=== PATIENT | male | born 1965 | race African-American/Black ===

== ENCOUNTER 2017-03-27 21:47 | Emergency (ER) | payer BC, MEDICAID ==
[~2017-03-27] VITALS: Ht 170.2 cm; Wt 64.0 kg
[2017-03-27] MEDS ORDERED: SODIUM CHLORIDE 0.9% 1,000 ML IV ONE (23:13)
[2017-03-27] MEDS ORDERED: MORPHINE SULFATE 4 MG/ML CPJ (NOT FOR IM USE) IV STA (23:13)
[2017-03-27] MEDS ORDERED: ONDANSETRON HCL 4MG/2ML VIAL IV STA (23:13)
[2017-03-27] MEDS ORDERED: NITROGLYCERIN OINT 1GM/INCH UDPKT TD ONE (23:15)
[2017-03-27] MEDS ORDERED: ASPIRIN 81MG TABLET PO ONE (23:15)
[2017-03-27 23:45] LABS: HEMATOCRIT. 38.9 % (42.0-52.0); HEMOGLOBIN. 13.3 g/dL (14.0-18.0); MEAN CORPUSCULAR HEMOGLOBIN 35.9 pg (28.0-32.0); MEAN CORPUSCULAR VOLUME 104.8 fL (80.0-94.0); MEAN PLATELET VOLUME 7.7 fl (7.4-10.4); PLATELET 218 x1000/uL (130-400); RED BLOOD CELL COUNT 3.72 mill/uL (4.7-6.1); RED CELL DISTRIBUTION WIDTH 12.7 % (11.6-14.6)
[2017-03-27 23:48] LABS: INR 1.1; PROTHROMBIN TIME 11.2 sec (9.4-11.6)
[2017-03-27 23:55] LABS: CARBON DIOXIDE 23 mEq/L (21-32); CHLORIDE 107 mEq/L (98-107); ETHANOL BLOOD 277 mg/dL; TROPONIN I < 0.02 ng/mL (0.00-0.04)
[2017-03-28] MEDS: MORPHINE SULFATE 2 MG/ML CPJ (NOT FOR IM USE) IV NR ×3 (00:01→01:41)
[2017-03-28 01:02] LABS: PLATELET ESTIMATE NORMAL
[2017-03-28 01:33] LABS: *AMPHETAMINES SCREEN URINE NEGATIVE (NEGATIVE); *BARBITURATES SCREEN URINE NEGATIVE (NEGATIVE); *BENZODIAZEPINES SCREEN URINE NEGATIVE (NEGATIVE); *COCAINE SCREEN URINE NEGATIVE (NEGATIVE); CANNABINOID URINE SCREEN PRESUMTIVE POSITIVE (NEGATIVE); METHADONE URINE SCREEN NEGATIVE (NEGATIVE); OPIATES URINE SCREEN PRESUMTIVE POSITIVE (NEGATIVE); PHENCYCLIDINE URINE SCREEN NEGATIVE (NEGATIVE)
[2017-03-28 01:41] VITALS: BP 112/76
== END 2017-03-28 01:41 | disposition home or self-care (01) ==
LOC: ER 22:33
DX: T51.0X1A Toxic effect of ethanol, accidental (unintentional), initial encounter (principal); I10 Essential (primary) hypertension; E78.00 Pure hypercholesterolemia, unspecified; R07.9 Chest pain, unspecified; F12.10 Cannabis abuse, uncomplicated; F17.200 Nicotine dependence, unspecified, uncomplicated; Y92.89 Other specified places as the place of occurrence of the external cause
CPT/HCPCS: 36415; 71010; 80053; 80305; 83690; 83880; 84484; 85025; 85610; 93005; 96361; 96374; 96375; 99285; 99406; G0482; J2270; J2405; J7030; Z7610

== ENCOUNTER 2017-12-10 11:12 | Emergency (ER) | payer BC, MEDICAID ==
[~2017-12-10] VITALS: Ht 170.2 cm; Wt 66.0 kg
[2017-12-10] MEDS ORDERED: IBUPROFEN 800MG TABLET PO ONE (11:45)
[2017-12-10 12:50] VITALS: BP 138/87
== END 2017-12-10 12:53 | disposition home or self-care (01) ==
LOC: ER 11:19
DX: M25.532 Pain in left wrist (principal); E78.00 Pure hypercholesterolemia, unspecified; I10 Essential (primary) hypertension; F12.10 Cannabis abuse, uncomplicated; F17.200 Nicotine dependence, unspecified, uncomplicated
CPT/HCPCS: 29125; 73110; 99284

== ENCOUNTER 2019-10-15 11:53 | Emergency (ER) | payer SELFPAY ==
[~2019-10-15] VITALS: Ht 170.2 cm; Wt 70.0 kg
[2019-10-15] MEDS ORDERED: SODIUM CHLORIDE 0.9% 1,000 ML IV ONE (12:16)
[2019-10-15 12:55] LABS: CHLORIDE 106 mEq/L (98-107)
[2019-10-15 12:59] LABS: ETHANOL BLOOD 53 mg/dL; HEMATOCRIT. 38.8 % (42.0-52.0); HEMOGLOBIN. 13.3 g/dL (14.0-18.0); MEAN CORPUSCULAR HEMOGLOBIN 36.2 pg (28.0-32.0); MEAN CORPUSCULAR VOLUME 105.4 fL (80.0-94.0); MEAN PLATELET VOLUME 7.5 fl (7.4-10.4); PLATELET 207 x1000/uL (130-400); RED BLOOD CELL COUNT 3.68 mill/uL (4.7-6.1); RED CELL DISTRIBUTION WIDTH 13.3 % (11.6-14.6)
[2019-10-15 13:00] LABS: INR 1.1; PROTHROMBIN TIME 11.4 sec (9.6-11.0)
[2019-10-15 14:12] LABS: PLATELET ESTIMATE NORMAL
[2019-10-15 14:48] LABS: CLARITY URINE CLEAR (CLEAR); COLOR URINE YELLOW (YELLOW); KETONES URINE NEGATIVE (NEGATIVE); LEUKOCYTE ESTERASE URINE NEGATIVE (NEGATIVE); NITRITE URINE NEGATIVE (NEGATIVE); OCCULT BLOOD URINE NEGATIVE (NEGATIVE); PROTEIN URINE NEGATIVE (NEGATIVE); SPECIFIC GRAVITY URINE 1.009 (1.005-1.030); UROBILINOGEN URINE 0.2 E.U./dL (0.2-1.0)
[2019-10-15 15:05] LABS: METHADONE URINE SCREEN NEGATIVE (NEGATIVE); OPIATES URINE SCREEN NEGATIVE (NEGATIVE); PHENCYCLIDINE URINE SCREEN NEGATIVE (NEGATIVE)
[2019-10-15 15:06] LABS: *AMPHETAMINES SCREEN URINE NEGATIVE (NEGATIVE); *BARBITURATES SCREEN URINE NEGATIVE (NEGATIVE); *BENZODIAZEPINES SCREEN URINE NEGATIVE (NEGATIVE); *COCAINE SCREEN URINE NEGATIVE (NEGATIVE); CANNABINOID URINE SCREEN PRESUMTIVE POSITIVE (NEGATIVE)
[2019-10-15 16:08] VITALS: BP 162/97
== END 2019-10-15 16:20 | disposition home or self-care (01) ==
LOC: ER 12:04 → CANBEDREQ 19:24
DX: R55 Syncope and collapse (principal); F12.90 Cannabis use, unspecified, uncomplicated; R94.31 Abnormal electrocardiogram [ECG] [EKG]; I10 Essential (primary) hypertension; E78.00 Pure hypercholesterolemia, unspecified
CPT/HCPCS: 36415; 71045; 80053; 80305; 80320; 81003; 85025; 85610; 93005; 96360; 99285; J7030; G0480

== ENCOUNTER 2020-05-11 15:55 | Emergency (ER) | payer SELFPAY ==
[~2020-05-11] VITALS: Ht 172.7 cm; Wt 64.0 kg
[2020-05-11] MEDS ORDERED: HYDROCODONE/ACETAMINOPHEN 5/325MG TABLET PO ONE (17:30)
[2020-05-11] MEDS ORDERED: IBUPROFEN 600MG TABLET PO ONE (17:30)
[2020-05-11 17:43] VITALS: BP 148/79
== END 2020-05-11 20:45 | disposition home or self-care (01) ==
LOC: ER 15:55
DX: S82.61XA Displaced fracture of lateral malleolus of right fibula, initial encounter for closed fracture (principal); Y93.67 Activity, basketball; Y92.310 Basketball court as the place of occurrence of the external cause; I10 Essential (primary) hypertension; F12.90 Cannabis use, unspecified, uncomplicated
CPT/HCPCS: 29515; 73610; 99283

== ENCOUNTER 2021-02-26 14:10 | Inpatient (IN) | payer SELFPAY ==
[~2021-02-26] VITALS: Ht 172.7 cm; Wt 64.0 kg
[2021-02-26] MEDS ORDERED: SODIUM CHLORIDE 0.9% 1,000 ML IV ONE (14:45)
[2021-02-26 15:17] LABS: BASOPHILS % 1.1 % (0.0-2.0); EOSINOPHILS % 1.6 % (0.0-5.0); HEMATOCRIT. 33.2 % (42.0-52.0); HEMOGLOBIN. 11.3 g/dL (14.0-18.0); LYMPHOCYTES % 30.7 % (20.0-50.0); MEAN CORPUSCULAR HEMOGLOBIN 35.4 pg (28.0-32.0); MONOCYTES % 13.9 % (2.0-8.0); NEUTROPHILS % 52.7 % (40.0-76.0); PLATELET 208 x1000/uL (130-400); RED BLOOD CELL COUNT 3.19 mill/uL (4.7-6.1); RED CELL DISTRIBUTION WIDTH 14.4 % (11.6-14.6)
[2021-02-26 16:00] LABS: CHLORIDE 109 mEq/L (98-107)
[2021-02-26 16:09] LABS: ETHANOL BLOOD 123 mg/dL
[2021-02-26 16:28] LABS: CLARITY URINE CLEAR (CLEAR); COLOR URINE YELLOW (YELLOW); KETONES URINE TRACE (NEGATIVE); LEUKOCYTE ESTERASE URINE TRACE (NEGATIVE); NITRITE URINE NEGATIVE (NEGATIVE); OCCULT BLOOD URINE NEGATIVE (NEGATIVE); PH URINE 5.5 (4.5-8.0); PROTEIN URINE 1+ (NEGATIVE); SPECIFIC GRAVITY URINE 1.018 (1.005-1.030)
[2021-02-26 16:39] LABS: *AMPHETAMINES SCREEN URINE NEGATIVE (NEGATIVE); *BARBITURATES SCREEN URINE NEGATIVE (NEGATIVE); *BENZODIAZEPINES SCREEN URINE PRESUMTIVE POSITIVE (NEGATIVE); *COCAINE SCREEN URINE NEGATIVE (NEGATIVE); METHADONE URINE SCREEN NEGATIVE (NEGATIVE); OPIATES URINE SCREEN NEGATIVE (NEGATIVE); PHENCYCLIDINE URINE SCREEN NEGATIVE (NEGATIVE)
[2021-02-26 16:40] LABS: CANNABINOID URINE SCREEN PRESUMTIVE POSITIVE (NEGATIVE)
[2021-02-26] MEDS ORDERED: ALBUTEROL (0.083%) 2.5MG/3ML NEB HHN STA (16:45)
[2021-02-27] MEDS ORDERED: ACETAMINOPHEN 500MG TABLET PO PRN (02:15)
[2021-02-27] MEDS ORDERED: WARF2.5T83 PO (03:09)
[2021-02-27] MEDS ORDERED: LISI-186 MT (03:11)
[2021-02-27] MEDS ORDERED: COR6 PO (03:12)
[2021-02-27] MEDS ORDERED: CLOP-31 PO (03:13)
[2021-02-27] MEDS ORDERED: PANT40TA51 MT (03:14)
[2021-02-27] MEDS ORDERED: ATOR-2 PO (03:14)
[2021-02-27] MEDS ORDERED: FOLI-43 MT (03:15)
[2021-02-27] MEDS ORDERED: ACET650T37 PO (03:16)
[2021-02-27 04:00] VITALS: BP 165/102
[2021-02-27 04:13] VITALS: BP 149/97
[2021-02-27] MEDS ORDERED: *PATIENT'S OWN MEDICATION STORAGE XX SCH (04:15)
[2021-02-27] MEDS: CARVEDILOL 6.25 MG TABLET PO SCH ×2 (05:43→21:13)
[2021-02-27] MEDS: PANTOPRAZOLE 40MG DR TABLET PO SCH (05:43)
[2021-02-27] MEDS: LISINOPRIL 20MG TABLET PO SCH (05:44)
[2021-02-27 06:36] LABS: HEMATOCRIT. 37.3 % (42.0-52.0); HEMOGLOBIN. 12.7 g/dL (14.0-18.0); MEAN CORPUSCULAR HEMOGLOBIN 35.4 pg (28.0-32.0); MEAN PLATELET VOLUME 8.3 fl (7.4-10.4); PLATELET 183 x1000/uL (130-400); RED BLOOD CELL COUNT 3.59 mill/uL (4.7-6.1)
[2021-02-27 06:57] LABS: CHLORIDE 108 mEq/L (98-107)
[2021-02-27 06:58] LABS: INR 1.1; PROTHROMBIN TIME 11.9 sec (9.6-11.0)
[2021-02-27 08:00] VITALS: BP 141/102
[2021-02-27] MEDS: CLOPIDOGREL 75MG TABLET PO SCH (08:44)
[2021-02-27] MEDS: LEVETIRACETAM 500MG TABLET PO SCH ×2 (08:44→21:13)
[2021-02-27] MEDS: FOLIC ACID 1MG TABLET PO SCH (08:44)
[2021-02-27] MEDS: CLONIDINE 0.1MG TABLET PO PRN ×2 (08:44→15:35)
[2021-02-27] MEDS ORDERED: LISINOPRIL 20MG TABLET PO SCH (09:00)
[2021-02-27 12:00] VITALS: BP 138/90
[2021-02-27] MEDS ORDERED: LORAZEPAM 2MG/ML CPJ IV PRN (13:45)
[2021-02-27] MEDS: CHLORDIAZEPOXIDE 5 MG CAPSULE PO SCH ×2 (14:01→21:48)
[2021-02-27 14:26] LABS: PLATELET ESTIMATE NORMAL
[2021-02-27] MEDS ORDERED: FOLIC ACID 1 MG, THIAMINE HCL 100 MG, MVI, ADULT NO.1 10 ML in DEXTROSE 5% WATER 1,000 ML IV SCH (15:00)
[2021-02-27 16:00] VITALS: BP 134/103
[2021-02-27 20:00] VITALS: BP_SYST 118; BP_SYST 130; BP_DIAS 72; BP_DIAS 84
[2021-02-27] MEDS ORDERED: ATORVASTATIN CALCIUM 40MG TABLET PO SCH (21:00)
[2021-02-28] VITALS: BP 139/96
[2021-02-28 04:00] VITALS: BP 132/89
[2021-02-28] MEDS: CHLORDIAZEPOXIDE 5 MG CAPSULE PO SCH ×2 (06:12→13:10)
[2021-02-28] MEDS: PANTOPRAZOLE 40MG DR TABLET PO SCH (06:12)
[2021-02-28 08:00] VITALS: BP 137/90
[2021-02-28] MEDS: LEVETIRACETAM 500MG TABLET PO SCH (09:07)
[2021-02-28] MEDS: CLOPIDOGREL 75MG TABLET PO SCH (09:07)
[2021-02-28] MEDS: FOLIC ACID 1MG TABLET PO SCH (09:07)
[2021-02-28] MEDS: LISINOPRIL 20MG TABLET PO SCH (09:07)
[2021-02-28] MEDS: CARVEDILOL 6.25 MG TABLET PO SCH (09:08)
[2021-02-28 12:00] VITALS: BP 125/79
[2021-02-28] MEDS ORDERED: CHLO25CA10 PO (15:19)
[2021-02-28] MEDS ORDERED: THIA100T88 MT (15:24)
[2021-02-28 15:43] VITALS: BP 125/79
[2021-02-28 16:00] VITALS: BP 124/79
== END 2021-02-28 17:30 | disposition home or self-care (01) | DRG 775 ==
LOC: ER 14:16 → 7EST 21:11 → ENRESERV 21:58
PROVIDERS: ADMIT Internal Medicine; ATTEND Internal Medicine
PROC: 4A10X4Z Monitoring of Central Nervous Electrical Activity, External Approach (ICD-10-PCS; principal; 2021-02-28)
DX: F10.139 Alcohol abuse with withdrawal, unspecified (principal); E44.0 Moderate protein-calorie malnutrition; R56.9 Unspecified convulsions; E87.8 Other disorders of electrolyte and fluid balance, not elsewhere classified; E78.00 Pure hypercholesterolemia, unspecified; E78.5 Hyperlipidemia, unspecified; I10 Essential (primary) hypertension; I25.10 Atherosclerotic heart disease of native coronary artery without angina pectoris; Y90.6 Blood alcohol level of 120-199 mg/100 ml; D64.9 Anemia, unspecified; D72.819 Decreased white blood cell count, unspecified; F12.90 Cannabis use, unspecified, uncomplicated; Z68.21 Body mass index [BMI] 21.0-21.9, adult; Z82.49 Family history of ischemic heart disease and other diseases of the circulatory system; Z83.3 Family history of diabetes mellitus; Z20.822 Contact with and (suspected) exposure to COVID-19
CPT/HCPCS: 36415; 70551; 71045; 80048; 80053; 80305; 80320; 81003; 84484; 85025; 87426; 93005; 93971; 99285; J3411; J3490; J7030; J7070; G0480

== ENCOUNTER 2021-04-03 17:53 | Emergency (ER) | payer MEDICAID ==
[~2021-04-03] VITALS: Ht 172.7 cm; Wt 63.0 kg
[~2021-04-03 17:53] MED LIST: ACET650T37 PO; ASPI-1497 PO; ATOR-2 PO; CLOP-31 PO; COR6 PO; FOLI-43 MT; LISI-186 MT
[2021-04-03 17:55] VITALS: BP 168/95
== END 2021-04-03 21:13 | disposition left against medical advice (07) ==
LOC: ER 17:53
DX: Z53.21 Procedure and treatment not carried out due to patient leaving prior to being seen by health care provider (principal); I49.9 Cardiac arrhythmia, unspecified
CPT/HCPCS: 93005

== ENCOUNTER 2022-06-20 12:49 | Emergency (ER) | payer MEDICAID ==
[~2022-06-20] VITALS: Ht 172.7 cm; Wt 75.0 kg
[~2022-06-20 12:49] MED LIST changes: +ACET-3163 PO; -ACET650T37 PO; +APIX5TAB PO; +nitro
[2022-06-20 12:51] VITALS: BP 172/98
[2022-06-20 14:17] LABS: CLARITY URINE CLEAR (CLEAR); COLOR URINE YELLOW (YELLOW); KETONES URINE TRACE (NEGATIVE); LEUKOCYTE ESTERASE URINE NEGATIVE (NEGATIVE); NITRITE URINE NEGATIVE (NEGATIVE); OCCULT BLOOD URINE TRACE (NEGATIVE); PROTEIN URINE 3+ (NEGATIVE); SPECIFIC GRAVITY URINE 1.023 (1.005-1.030)
[2022-06-20 14:23] LABS: EOSINOPHILS % 0.6 % (0.0-5.0); HEMOGLOBIN. 13.6 g/dL (14.0-18.0); LYMPHOCYTES % 30.3 % (20.0-50.0); MEAN CORPUSCULAR VOLUME 105.9 fL (80.0-94.0); MEAN PLATELET VOLUME 8.2 fl (7.4-10.4); MONOCYTES % 11.1 % (2.0-8.0); PLATELET 143 x1000/uL (130-400); RED BLOOD CELL COUNT 3.78 mill/uL (4.7-6.1); RED CELL DISTRIBUTION WIDTH 12.8 % (11.6-14.6)
[2022-06-20 14:37] LABS: CHLORIDE 102 mEq/L (98-107)
[2022-06-20 14:51] LABS: ETHANOL BLOOD 186 mg/dL
[2022-06-20 15:00] LABS: *AMPHETAMINES SCREEN URINE NEGATIVE (NEGATIVE); *BARBITURATES SCREEN URINE NEGATIVE (NEGATIVE); *BENZODIAZEPINES SCREEN URINE NEGATIVE (NEGATIVE); *COCAINE SCREEN URINE NEGATIVE (NEGATIVE); CANNABINOID URINE SCREEN PRESUMTIVE POSITIVE (NEGATIVE); METHADONE URINE SCREEN NEGATIVE (NEGATIVE); OPIATES URINE SCREEN NEGATIVE (NEGATIVE); PHENCYCLIDINE URINE SCREEN NEGATIVE (NEGATIVE)
[2022-06-20] MEDS ORDERED: MECL-264 PO (15:40)
== END 2022-06-20 15:55 | disposition home or self-care (01) ==
LOC: ER 12:49
DX: F10.129 Alcohol abuse with intoxication, unspecified (principal); Y90.6 Blood alcohol level of 120-199 mg/100 ml; F12.929 Cannabis use, unspecified with intoxication, unspecified; R42 Dizziness and giddiness; G89.29 Other chronic pain; E78.00 Pure hypercholesterolemia, unspecified; I10 Essential (primary) hypertension; Z79.899 Other long term (current) drug therapy
CPT/HCPCS: 36415; 80053; 80305; 80320; 81003; 84484; 85025; 93005; 99285; G0480

== ENCOUNTER 2022-09-20 17:01 | Emergency (ER) | payer MEDICAID ==
[~2022-09-20] VITALS: Ht 170.2 cm; Wt 65.0 kg
[~2022-09-20 17:01] MED LIST changes: +MECL-264 PO
[2022-09-20] MEDS ORDERED: SODIUM CHLORIDE 0.9% 1,000 ML IV ONE (17:30)
[2022-09-20] MEDS ORDERED: FOLIC ACID 1 MG, THIAMINE HCL 100 MG, MVI, ADULT NO.1 10 ML in DEXTROSE 5% WATER 1,000 ML IV ONE ×4 (17:30)
[2022-09-20] MEDS ORDERED: LORAZEPAM 2MG/ML CPJ IV ONE (17:30)
[2022-09-20 18:00] LABS: EOSINOPHILS % 0.5 % (0.0-5.0); HEMATOCRIT. 38.4 % (42.0-52.0); LYMPHOCYTES % 14.4 % (20.0-50.0); MEAN CORPUSCULAR HEMOGLOBIN 34.8 pg (28.0-32.0); MEAN CORPUSCULAR VOLUME 102.6 fL (80.0-94.0); MEAN PLATELET VOLUME 8.4 fl (7.4-10.4); MONOCYTES % 12.5 % (2.0-8.0); NEUTROPHILS % 71.6 % (40.0-76.0); PLATELET 166 x1000/uL (130-400); RED BLOOD CELL COUNT 3.74 mill/uL (4.7-6.1); RED CELL DISTRIBUTION WIDTH 14.5 % (11.6-14.6)
[2022-09-20 18:03] LABS: CHLORIDE 103 mEq/L (98-107)
[2022-09-20 18:04] LABS: INR 1.1
[2022-09-20 18:06] VITALS: BP 187/115
[2022-09-20 18:12] LABS: ETHANOL BLOOD 44 mg/dL; PHOSPHORUS 3.2 mg/dL (2.5-4.9)
[2022-09-20] MEDS ORDERED: MAGNESIUM 2 G PREMIX 50 ML IV ONE (18:30)
[2022-09-20] MEDS ORDERED: CHLORDIAZEPOXIDE 25MG CAPSULE PO ONE (18:30)
[2022-09-20] MEDS ORDERED: L25 MT (18:58)
[2022-09-20] MEDS ORDERED: HYDRALAZINE 20MG/ML VIAL IV ONE (19:00)
== END 2022-09-20 20:38 | disposition home or self-care (01) ==
LOC: ER 17:23
DX: F10.239 Alcohol dependence with withdrawal, unspecified (principal); E83.42 Hypomagnesemia; Y90.2 Blood alcohol level of 40-59 mg/100 ml
CPT/HCPCS: 36415; 71045; 80053; 80320; 83690; 83735; 84100; 84484; 85025; 85610; 93005; 96365; 96367; 96375; 99291; J0360; J2060; J3411; J3475; J3490; J7030; J7070; Z7610; G0480

== ENCOUNTER 2022-11-01 20:08 | Emergency (ER) | payer MEDICAID ==
[~2022-11-01] VITALS: Ht 167.6 cm; Wt 73.0 kg
[~2022-11-01 20:08] MED LIST changes: +L25 MT
[2022-11-01] MEDS ORDERED: NITROGLYCERIN 0.4MG TABLET SL SL PRN (20:30)
[2022-11-01] MEDS ORDERED: ASPIRIN 81MG TABLET PO ONE (20:30)
[2022-11-01 21:53] LABS: HEMATOCRIT. 34.8 % (42.0-52.0); HEMOGLOBIN. 11.8 g/dL (14.0-18.0); MEAN CORPUSCULAR HEMOGLOBIN 34.8 pg (28.0-32.0); MEAN CORPUSCULAR VOLUME 102.5 fL (80.0-94.0); MEAN PLATELET VOLUME 7.8 fl (7.4-10.4); PLATELET 182 x1000/uL (130-400); RED BLOOD CELL COUNT 3.39 mill/uL (4.7-6.1)
[2022-11-01 22:14] LABS: CHLORIDE 105 mEq/L (98-107); PLATELET ESTIMATE NORMAL
[2022-11-01 23:09] VITALS: BP 132/98
== END 2022-11-01 23:14 | disposition home or self-care (01) ==
LOC: ER 20:08 → CANBEDREQ 23:47
DX: R07.89 Other chest pain (principal); E78.00 Pure hypercholesterolemia, unspecified; I10 Essential (primary) hypertension; F12.10 Cannabis abuse, uncomplicated
CPT/HCPCS: 36415; 71045; 80053; 83880; 84484; 85025; 93005; 99285

== ENCOUNTER 2022-11-30 15:16 | Inpatient (IN) | payer MEDICAID ==
[~2022-11-30] VITALS: Ht 172.7 cm; Wt 69.1 kg
[~2022-11-30 15:16] MED LIST changes: -ACET-3163 PO; -CLOP-31 PO; -L25 MT; +NITR0.4T49 SL; +PANT40TA51 PO; +THIA100T72 PO; -nitro
[2022-11-30] MEDS ORDERED: NITROGLYCERIN 0.4MG TABLET SL SL PRN (16:30)
[2022-11-30] MEDS ORDERED: ASPIRIN 81MG TABLET PO ONE (16:30)
[2022-11-30] MEDS ORDERED: SODIUM CHLORIDE 0.9% 1,000 ML IV ONE (16:30)
[2022-11-30 17:11] LABS: HEMATOCRIT. 28.3 % (42.0-52.0); HEMOGLOBIN. 9.7 g/dL (14.0-18.0); MEAN CORPUSCULAR HEMOGLOBIN 36.2 pg (28.0-32.0); MEAN CORPUSCULAR VOLUME 106.1 fL (80.0-94.0); MEAN PLATELET VOLUME 8.1 fl (7.4-10.4); PLATELET 166 x1000/uL (130-400); RED BLOOD CELL COUNT 2.67 mill/uL (4.7-6.1); RED CELL DISTRIBUTION WIDTH 14.1 % (11.6-14.6)
[2022-11-30 17:22] LABS: CHLORIDE 112 mEq/L (98-107)
[2022-11-30 17:29] LABS: D-DIMER 0.81 mg/L FEU (<0.50); PARTIAL THROMBOPLASTIN TIME 23.5 sec (23.4-31.0); PROTHROMBIN TIME 10.9 sec (9.6-11.0)
[2022-11-30 17:54] LABS: PLATELET ESTIMATE NORMAL
[2022-11-30] MEDS ORDERED: IOHEXOL-350 100 ML BOTTLE ONE (18:43)
[2022-11-30] MEDS: SODIUM CHLORIDE 0.9% INJ 3ML FLUSH IVF SCH (22:00)
[2022-11-30] MEDS ORDERED: CLONIDINE 0.1MG TABLET PO PRN (22:00)
[2022-11-30] MEDS ORDERED: MAGNESIUM/ALUMINUM HYDROXIDE/SIMETHICONE 30ML UDC PO PRN (22:00)
[2022-11-30] MEDS ORDERED: ACETAMINOPHEN 325MG TABLET PO PRN ×2 (22:00)
[2022-11-30] MEDS ORDERED: ONDANSETRON HCL 4MG/2ML INJ IV PRN (22:00)
[2022-11-30] MEDS ORDERED: ZOLPIDEM TARTRATE 5MG TABLET PO PRN (22:00)
[2022-11-30] MEDS ORDERED: DIPHENHYDRAMINE 50MG/ML VIAL IV PRN (22:00)
[2022-11-30 22:45] VITALS: BP 155/83; PULSE 77; RESP 18; TEMP 98.8
[2022-11-30] MEDS: CHLORDIAZEPOXIDE 25MG CAPSULE PO SCH (23:14)
[2022-12-01] MEDS: SODIUM CHLORIDE 0.9% INJ 3ML FLUSH IVF SCH ×3 (06:00→20:54)
[2022-12-01] MEDS: CHLORDIAZEPOXIDE 25MG CAPSULE PO SCH (07:02)
[2022-12-01 07:39] LABS: *AMPHETAMINES SCREEN URINE NEGATIVE (NEGATIVE); *BARBITURATES SCREEN URINE NEGATIVE (NEGATIVE); *BENZODIAZEPINES SCREEN URINE PRESUMTIVE POSITIVE (NEGATIVE); *COCAINE SCREEN URINE NEGATIVE (NEGATIVE); CANNABINOID URINE SCREEN NEGATIVE (NEGATIVE); METHADONE URINE SCREEN NEGATIVE (NEGATIVE); OPIATES URINE SCREEN NEGATIVE (NEGATIVE); PHENCYCLIDINE URINE SCREEN NEGATIVE (NEGATIVE)
[2022-12-01 08:00] VITALS: BP 142/84; PULSE 71; RESP 18; TEMP 98.8
[2022-12-01] MEDS: APIXABAN 5 MG TABLET PO SCH ×2 (08:50→16:50)
[2022-12-01] MEDS: SPIRONOLACTONE 25MG TABLET PO SCH (08:50)
[2022-12-01] MEDS: THIAMINE HCL 100MG TABLET PO SCH (08:50)
[2022-12-01] MEDS: LISINOPRIL 5MG TABLET PO SCH ×2 (08:51→20:53)
[2022-12-01] MEDS ORDERED: CARVEDILOL 3.125 MG TABLET PO SCH (09:00)
[2022-12-01] MEDS ORDERED: LISINOPRIL 5MG TABLET PO SCH (09:00)
[2022-12-01 12:00] VITALS: BP 132/69; PULSE 68; RESP 20; TEMP 97.4
[2022-12-01 16:00] VITALS: BP_SYST 122; BP_SYST 164; BP_DIAS 100; BP_DIAS 63; PULSE 75; PULSE 81; RESP 20; TEMP 97; TEMP 99.7
[2022-12-01 20:00] VITALS: BP 144/80; PULSE 69; RESP 18; TEMP 97.8
[2022-12-01] MEDS: CARVEDILOL 12.5MG TABLET PO SCH (20:53)
[2022-12-01] MEDS: FAMOTIDINE 20MG TABLET PO SCH (20:53)
[2022-12-02] VITALS: BP 115/60; PULSE 90; RESP 20; TEMP 98.8
[2022-12-02 04:00] VITALS: BP 134/77; PULSE 65; RESP 20; TEMP 98.4
[2022-12-02] MEDS: SODIUM CHLORIDE 0.9% INJ 3ML FLUSH IVF SCH ×2 (06:00→14:24)
[2022-12-02 08:00] VITALS: BP 144/94; PULSE 63; RESP 20; TEMP 97.3
[2022-12-02] MEDS: SPIRONOLACTONE 25MG TABLET PO SCH (08:43)
[2022-12-02] MEDS: APIXABAN 5 MG TABLET PO SCH (08:43)
[2022-12-02] MEDS: THIAMINE HCL 100MG TABLET PO SCH (08:44)
[2022-12-02] MEDS: LISINOPRIL 5MG TABLET PO SCH (08:44)
[2022-12-02] MEDS: FAMOTIDINE 20MG TABLET PO SCH (08:44)
[2022-12-02] MEDS: CARVEDILOL 12.5MG TABLET PO SCH (08:44)
[2022-12-02 12:00] VITALS: BP 135/85; PULSE 65; RESP 18; TEMP 99.7
[2022-12-02 15:17] VITALS: BP 135/85; PULSE 65; TEMP 99.7; O2SAT 97
[2022-12-02 16:00] VITALS: BP 138/90; PULSE 65; RESP 20; TEMP 98.2
== END 2022-12-02 16:20 | disposition home or self-care (01) | DRG 48 ==
LOC: ER 15:16 → 8WST 20:41 → EDBEDREQTM 20:45 → EDBEDREQ 20:45 → ENRESERV 21:06
PROVIDERS: ADMIT Internal Medicine; ATTEND Internal Medicine
DX: G90.8 Other disorders of autonomic nervous system (principal); I82.502 Chronic embolism and thrombosis of unspecified deep veins of left lower extremity; F10.10 Alcohol abuse, uncomplicated; I10 Essential (primary) hypertension; I25.10 Atherosclerotic heart disease of native coronary artery without angina pectoris; E78.00 Pure hypercholesterolemia, unspecified; Z82.49 Family history of ischemic heart disease and other diseases of the circulatory system; Z59.01 Sheltered homelessness; R55 Syncope and collapse; Z83.3 Family history of diabetes mellitus; Z95.5 Presence of coronary angioplasty implant and graft
CPT/HCPCS: 36415; 71045; 71275; 80053; 80305; 83880; 84484; 85025; 85379; 93005; 93970; 99285; J7030; Q9967

== ENCOUNTER 2022-12-18 10:11 | Inpatient (IN) | payer MEDICAID ==
[~2022-12-18] VITALS: Ht 172.7 cm; Wt 86.6 kg
[2022-12-18] MEDS ORDERED: CEFTRIAXONE 1GM PREMIX 50 ML IV ONE (10:45)
[2022-12-18] MEDS ORDERED: SODIUM CHLORIDE 0.9% 1000ML BAG (SEPSIS BOLUS) IV ONE (10:45)
[2022-12-18 11:46] LABS: BASOPHILS % 0.7 % (0.0-2.0); EOSINOPHILS % 0.5 % (0.0-5.0); HEMOGLOBIN. 9.7 g/dL (14.0-18.0); LYMPHOCYTES % 13.1 % (20.0-50.0); MEAN CORPUSCULAR HEMOGLOBIN 35.2 pg (28.0-32.0); MEAN CORPUSCULAR VOLUME 105.6 fL (80.0-94.0); MEAN PLATELET VOLUME 7.7 fl (7.4-10.4); MONOCYTES % 6.9 % (2.0-8.0); NEUTROPHILS % 78.8 % (40.0-76.0); PLATELET 172 x1000/uL (130-400); RED BLOOD CELL COUNT 2.75 mill/uL (4.7-6.1); RED CELL DISTRIBUTION WIDTH 14.1 % (11.6-14.6)
[2022-12-18 11:56] LABS: INR 1.2; PROTHROMBIN TIME 12.9 sec (9.6-11.0)
[2022-12-18 12:16] LABS: CHLORIDE 116 mEq/L (98-107)
[2022-12-18 12:24] LABS: CREATINE KINASE 111 IU/L (39-308); ETHANOL BLOOD 214 mg/dL (-10)
[2022-12-18] MEDS ORDERED: MAGNESIUM/ALUMINUM HYDROXIDE/SIMETHICONE 30ML UDC PO PRN (14:15)
[2022-12-18] MEDS ORDERED: IPRATROPIUM/ALBUTEROL 0.5-3(2.5)MG/3ML NEB HHN PRN (14:15)
[2022-12-18] MEDS ORDERED: ACETAMINOPHEN 325MG TABLET PO PRN ×2 (14:15)
[2022-12-18] MEDS ORDERED: GUAIFENESIN 200MG/10ML SUGAR FREE UDC PO PRN (14:15)
[2022-12-18] MEDS ORDERED: DOCUSATE SODIUM 100MG CAPSULE PO PRN (14:15)
[2022-12-18] MEDS ORDERED: CHLORDIAZEPOXIDE 25MG CAPSULE PO PRN (14:45)
[2022-12-18] MEDS ORDERED: CEFTRIAXONE 1GM PREMIX 50 ML IV SCH (15:00)
[2022-12-18] MEDS ORDERED: MVI, ADULT NO.1 10 ML, FOLIC ACID 1 MG, THIAMINE HCL 100 MG in SODIUM CHLORIDE 0.9% 1,0... IV SCH ×4 (16:00)
[2022-12-18] MEDS: ONDANSETRON HCL 4MG/2ML INJ IV PRN (16:14)
[2022-12-18 16:38] LABS: FOLIC ACID (FOLATE) SERUM 11.6 ng/mL (>5.38)
[2022-12-18] MEDS ORDERED: APIXABAN 5 MG TABLET PO SCH (17:00)
[2022-12-18] MEDS ORDERED: LORAZEPAM 2MG/ML CPJ IV PRN (18:00)
[2022-12-18 18:08] VITALS: BP 127/60; PULSE 59; RESP 20; TEMP 97
[2022-12-18] MEDS: PANTOPRAZOLE 40MG DR TABLET PO SCH (19:05)
[2022-12-18] MEDS: THIAMINE HCL 100MG TABLET PO SCH (19:05)
[2022-12-18 20:00] VITALS: BP 159/90; PULSE 77; RESP 18; TEMP 97.8
[2022-12-18 21:06] LABS: VITAMIN B12 SERUM 383 pg/mL (211-911)
[2022-12-18] MEDS: ATORVASTATIN CALCIUM 40MG TABLET PO SCH (23:21)
[2022-12-18] MEDS: ENOXAPARIN 80MG/0.8ML SYR SUBCUT SCH (23:22)
[2022-12-18 23:37] LABS: CREATINE KINASE 143 IU/L (39-308)
[2022-12-19] VITALS: BP 155/55; PULSE 78; RESP 18; TEMP 98
[2022-12-19] MEDS: ONDANSETRON HCL 4MG/2ML INJ IV PRN (02:16)
[2022-12-19 04:00] VITALS: BP 158/81; PULSE 79; RESP 16; TEMP 98
[2022-12-19 07:00] LABS: BASOPHILS % 0.8 % (0.0-2.0); EOSINOPHILS % 0.1 % (0.0-5.0); HEMATOCRIT. 31.5 % (42.0-52.0); HEMOGLOBIN. 10.7 g/dL (14.0-18.0); MEAN CORPUSCULAR HEMOGLOBIN 35.4 pg (28.0-32.0); MEAN CORPUSCULAR VOLUME 104.1 fL (80.0-94.0); MEAN PLATELET VOLUME 8.7 fl (7.4-10.4); MONOCYTES % 12.9 % (2.0-8.0); NEUTROPHILS % 73.2 % (40.0-76.0); PLATELET 163 x1000/uL (130-400); RED BLOOD CELL COUNT 3.03 mill/uL (4.7-6.1); RED CELL DISTRIBUTION WIDTH 13.6 % (11.6-14.6)
[2022-12-19 07:10] LABS: CHLORIDE 105 mEq/L (98-107)
[2022-12-19 07:29] LABS: CREATINE KINASE 148 IU/L (39-308); T4 FREE 0.77 ng/dL (0.76-1.46)
[2022-12-19] MEDS: PANTOPRAZOLE 40MG DR TABLET PO SCH (07:30)
[2022-12-19 08:00] VITALS: BP 152/90; PULSE 74; RESP 14; TEMP 98.2
[2022-12-19] MEDS ORDERED: CEFTRIAXONE 1,000 MG in DEXTROSE 5% WATER 50 ML IV SCH (09:00)
[2022-12-19] MEDS: ENOXAPARIN 80MG/0.8ML SYR SUBCUT SCH ×2 (09:44→22:07)
[2022-12-19] MEDS: THIAMINE HCL 100MG TABLET PO SCH (09:44)
[2022-12-19] MEDS: FOLIC ACID 1MG TABLET PO SCH (09:45)
[2022-12-19] MEDS: CARVEDILOL 6.25 MG TABLET PO SCH ×2 (09:45→22:06)
[2022-12-19] MEDS: ASPIRIN 81MG EC TABLET PO SCH (09:46)
[2022-12-19 12:00] VITALS: BP 154/85; PULSE 83; RESP 15; TEMP 98.1
[2022-12-19 12:33] LABS: CLARITY URINE CLEAR (CLEAR); COLOR URINE YELLOW (YELLOW); KETONES URINE 2+ (NEGATIVE); LEUKOCYTE ESTERASE URINE NEGATIVE (NEGATIVE); NITRITE URINE NEGATIVE (NEGATIVE); OCCULT BLOOD URINE NEGATIVE (NEGATIVE); PH URINE 5.5 (4.5-8.0); PROTEIN URINE NEGATIVE (NEGATIVE); SPECIFIC GRAVITY URINE 1.014 (1.005-1.030); UROBILINOGEN URINE 0.2 E.U./dL (0.2-1.0)
[2022-12-19 13:58] LABS: *AMPHETAMINES SCREEN URINE NEGATIVE (NEGATIVE); *BARBITURATES SCREEN URINE NEGATIVE (NEGATIVE); *BENZODIAZEPINES SCREEN URINE PRESUMTIVE POSITIVE (NEGATIVE); *COCAINE SCREEN URINE NEGATIVE (NEGATIVE); CANNABINOID URINE SCREEN NEGATIVE (NEGATIVE); METHADONE URINE SCREEN NEGATIVE (NEGATIVE); OPIATES URINE SCREEN NEGATIVE (NEGATIVE); PHENCYCLIDINE URINE SCREEN NEGATIVE (NEGATIVE)
[2022-12-19] MEDS ORDERED: LISINOPRIL 5MG TABLET PO SCH ×2 (14:00→15:00)
[2022-12-19] MEDS ORDERED: CEFTRIAXONE 1GM PREMIX 50 ML IV SCH (15:00)
[2022-12-19 16:00] VITALS: PULSE 71; RESP 10
[2022-12-19 17:12] LABS: HEPATITIS B SURFACE ANTIGEN NEGATIVE
[2022-12-19 20:00] VITALS: BP 162/110; PULSE 81; RESP 14; TEMP 99.4
[2022-12-19] MEDS: ATORVASTATIN CALCIUM 40MG TABLET PO SCH (22:06)
[2022-12-19] MEDS: CLONIDINE 0.1MG TABLET PO PRN (22:07)
[2022-12-20] VITALS (7 sets, daily range): BP systolic 147–165; BP diastolic 93–111; PULSE 63–92; RESP 16–20; TEMP 97.9–98.6; O2SAT 98
[2022-12-20 07:10] LABS: HEMATOCRIT. 31.2 % (42.0-52.0); HEMOGLOBIN. 10.7 g/dL (14.0-18.0); MEAN CORPUSCULAR HEMOGLOBIN 35.1 pg (28.0-32.0); MEAN CORPUSCULAR VOLUME 102.6 fL (80.0-94.0); PLATELET 137 x1000/uL (130-400); RED BLOOD CELL COUNT 3.04 mill/uL (4.7-6.1); RED CELL DISTRIBUTION WIDTH 13.8 % (11.6-14.6)
[2022-12-20 07:47] LABS: CHLORIDE 102 mEq/L (98-107)
[2022-12-20 08:01] LABS: CREATINE KINASE MB FRACTION < 1.0 ng/mL (0.5-3.6)
[2022-12-20] MEDS ORDERED: LOSARTAN POTASSIUM 25 MG TABLET PO SCH (09:00)
[2022-12-20] MEDS: THIAMINE HCL 100MG TABLET PO SCH (09:33)
[2022-12-20] MEDS: FOLIC ACID 1MG TABLET PO SCH (09:33)
[2022-12-20] MEDS: CARVEDILOL 6.25 MG TABLET PO SCH ×2 (09:34→21:41)
[2022-12-20] MEDS: PANTOPRAZOLE 40MG DR TABLET PO SCH (09:34)
[2022-12-20] MEDS: ASPIRIN 81MG EC TABLET PO SCH (09:35)
[2022-12-20] MEDS: ENOXAPARIN 80MG/0.8ML SYR SUBCUT SCH ×2 (09:35→21:43)
[2022-12-20 14:08] LABS: PLATELET ESTIMATE NORMAL
[2022-12-20] MEDS ORDERED: LIP40 PO (14:08)
[2022-12-20] MEDS ORDERED: THIA100T72 PO (14:08)
[2022-12-20] MEDS ORDERED: LOSA25TA3 PO (14:08)
[2022-12-20] MEDS ORDERED: COR6 PO (14:08)
[2022-12-20] MEDS ORDERED: FOLI-43 PO (14:08)
[2022-12-20] MEDS: ATORVASTATIN CALCIUM 40MG TABLET PO SCH (21:41)
[2022-12-21] VITALS: BP 160/106; PULSE 70; RESP 19; TEMP 97.5
[2022-12-21] MEDS: CLONIDINE 0.1MG TABLET PO PRN (01:19)
[2022-12-21 04:00] VITALS: BP 142/96; PULSE 67; RESP 18; TEMP 98.4
[2022-12-21 06:25] LABS: BASOPHILS % 0.7 % (0.0-2.0); EOSINOPHILS % 2.7 % (0.0-5.0); HEMATOCRIT. 32.2 % (42.0-52.0); HEMOGLOBIN. 11.1 g/dL (14.0-18.0); LYMPHOCYTES % 21.9 % (20.0-50.0); MEAN CORPUSCULAR HEMOGLOBIN 35.5 pg (28.0-32.0); MEAN CORPUSCULAR VOLUME 103.1 fL (80.0-94.0); MEAN PLATELET VOLUME 9.2 fl (7.4-10.4); MONOCYTES % 12.5 % (2.0-8.0); NEUTROPHILS % 62.2 % (40.0-76.0); PLATELET 128 x1000/uL (130-400); RED BLOOD CELL COUNT 3.13 mill/uL (4.7-6.1); RED CELL DISTRIBUTION WIDTH 13.6 % (11.6-14.6)
[2022-12-21 07:58] LABS: CHLORIDE 100 mEq/L (98-107)
[2022-12-21 08:00] VITALS: BP 145/98; PULSE 75; RESP 20; TEMP 98
[2022-12-21 08:13] VITALS: PULSE 67
[2022-12-21] MEDS: CARVEDILOL 6.25 MG TABLET PO SCH (08:13)
[2022-12-21] MEDS: ASPIRIN 81MG EC TABLET PO SCH (08:13)
[2022-12-21] MEDS: FOLIC ACID 1MG TABLET PO SCH (08:13)
[2022-12-21] MEDS: THIAMINE HCL 100MG TABLET PO SCH (08:14)
[2022-12-21] MEDS: ENOXAPARIN 80MG/0.8ML SYR SUBCUT SCH (08:14)
[2022-12-21] MEDS ORDERED: FAMOTIDINE 20MG TABLET PO SCH (09:00)
[2022-12-21] MEDS ORDERED: LOSARTAN POTASSIUM 50 MG TABLET PO SCH (09:00)
[2022-12-21] MEDS ORDERED: POTASSIUM CHLORIDE 20MEQ TABLET SR PO NR (12:15)
== END 2022-12-21 14:24 | disposition home or self-care (01) | DRG 422 ==
LOC: ER 10:11 → EDBEDREQ 12:16 → 5EST 16:19
PROVIDERS: ADMIT Internal Medicine; ATTEND Internal Medicine
DX: E86.0 Dehydration (principal); G92.8 Other toxic encephalopathy; E87.20 Acidosis, unspecified; E46 Unspecified protein-calorie malnutrition; E83.51 Hypocalcemia; K70.9 Alcoholic liver disease, unspecified; D53.9 Nutritional anemia, unspecified; E11.9 Type 2 diabetes mellitus without complications; F10.229 Alcohol dependence with intoxication, unspecified; I82.502 Chronic embolism and thrombosis of unspecified deep veins of left lower extremity; I10 Essential (primary) hypertension; Y90.7 Blood alcohol level of 200-239 mg/100 ml; F12.10 Cannabis abuse, uncomplicated
CPT/HCPCS: 36415; 71045; 80053; 80305; 80320; 81003; 82550; 82553; 82607; 82746; 82962; 82977; 83036; 83605; 84145; 84439; 84443; 84484; 85025; 85379; 86803; 86850; 86900; 87340; 87426; 93005; 93306; 93970; 95816; 97161; 99291; C9803; J0696; J1650; J2060; J2405; J3411; J3490; J7030; J7060; G0480

== ENCOUNTER 2023-03-05 20:43 | Emergency (ER) | payer MEDICAID ==
[~2023-03-05] VITALS: Ht 172.7 cm; Wt 73.0 kg
[~2023-03-05 20:43] MED LIST changes: -APIX5TAB PO; +FOLI-43 PO; +LIP40 PO; -LISI-186 MT; +LOSA-412 PO
[2023-03-05 20:47] VITALS: O2SAT 98
[2023-03-05] MEDS ORDERED: SODIUM CHLORIDE 0.9% 1,000 ML IV ONE (21:15)
[2023-03-05 23:51] LABS: BASOPHILS % 0.5 % (0.0-2.0); DIFFERENTIAL COMMENT 0; EOSINOPHILS % 0.5 % (0.0-5.0); HEMATOCRIT. 35.4 % (42.0-52.0); HEMOGLOBIN. 11.8 g/dL (14.0-18.0); LYMPHOCYTES % 12.9 % (20.0-50.0); MEAN CORPUSCULAR HEMOGLOBIN 33.9 pg (28.0-32.0); MEAN CORPUSCULAR HGB CONC 33.3 g/dL (31.0-37.0); MEAN CORPUSCULAR VOLUME 101.8 fL (80.0-94.0); MEAN PLATELET VOLUME 8.3 fl (7.4-10.4); MONOCYTES % 12.7 % (2.0-8.0); NEUTROPHILS % 73.4 % (40.0-76.0); PLATELET 148 x1000/uL (130-400); RED BLOOD CELL COUNT 3.48 mill/uL (4.7-6.1); WHITE BLOOD COUNT 4.5 x1000/uL (4.5-11.0)
[2023-03-05 23:57] LABS: CHLORIDE 102 mEq/L (98-107); INDEX HEMOLYSI 2 (1-3); INDEX ICTERIC 1 (1-4); INDEX LIPEMIC 1 (1-3); POTASSIUM 4.2 mEq/L (3.5-5.1); SODIUM 136 mEq/L (136-145)
[2023-03-05 23:58] LABS: PROTHROMBIN TIME 11.2 sec (9.6-11.0)
[2023-03-06 00:09] LABS: ALANINE AMINOTRANSFERASE 109 IU/L (13-61); ALBUMIN 3.8 g/dL (3.4-5.0); ASPARTATE AMINOTRANSFERASE 133 IU/L (15-37); BILIRUBIN TOTAL 0.6 mg/dL (0.1-1.0); CALCIUM 9.2 mg/dL (8.5-10.1); CARBON DIOXIDE 23 mEq/L (21-32); ETHANOL BLOOD 30 mg/dL (<10); GLUCOSE 87 mg/dL (70-105); PROTEIN TOTAL 7.8 g/dL (6.0-8.3); TROPONIN I HIGH SENSITIVITY 9 ng/L (<78); UREA NITROGEN BLOOD 17 mg/dL (7-21)
[2023-03-06] MEDS ORDERED: SODIUM CHLORIDE 0.9% 1,000 ML IV ONE (00:30)
[2023-03-06] MEDS ORDERED: IBUPROFEN 600MG TABLET PO ONE (05:15)
[2023-03-06 07:22] VITALS: BP 131/78; PULSE 83; RESP 20; TEMP 98.3
== END 2023-03-06 07:23 | disposition home or self-care (01) ==
LOC: ER 20:43
DX: I95.89 Other hypotension (principal); E78.00 Pure hypercholesterolemia, unspecified; I10 Essential (primary) hypertension; R42 Dizziness and giddiness; F10.20 Alcohol dependence, uncomplicated; Z98.890 Other specified postprocedural states; Y90.1 Blood alcohol level of 20-39 mg/100 ml
CPT/HCPCS: 80053; 80320; 83690; 85025; 85610; 84484; 36415; 71045; 70450; 93005; 99285; 83605; 87040; 96360; J7030 ×2; G0480

== ENCOUNTER 2023-04-06 15:05 | Emergency (ER) | payer MEDICAID ==
[~2023-04-06] VITALS: Ht 170.2 cm; Wt 64.0 kg
[2023-04-06 15:09] VITALS: O2SAT 98
[2023-04-06] MEDS ORDERED: SODIUM CHLORIDE 0.9% 1,000 ML IV ONE (15:15)
[2023-04-06 16:00] LABS: HEMATOCRIT. 38.3 % (42.0-52.0); HEMOGLOBIN. 12.9 g/dL (14.0-18.0); MEAN CORPUSCULAR HEMOGLOBIN 34.9 pg (28.0-32.0); MEAN CORPUSCULAR HGB CONC 33.6 g/dL (31.0-37.0); MEAN CORPUSCULAR VOLUME 103.7 fL (80.0-94.0); MEAN PLATELET VOLUME 7.6 fl (7.4-10.4); PLATELET 270 x1000/uL (130-400); RED CELL DISTRIBUTION WIDTH 14.8 % (11.6-14.6); WHITE BLOOD COUNT 3.6 x1000/uL (4.5-11.0)
[2023-04-06 16:03] LABS: DIFFERENTIAL COMMENT 1
[2023-04-06 16:14] LABS: INR 1.1; PROTHROMBIN TIME 11.6 sec (9.6-11.0)
[2023-04-06 16:17] LABS: INDEX HEMOLYSI 1 (1-3); INDEX ICTERIC 1 (1-4); INDEX LIPEMIC 1 (1-3)
[2023-04-06 17:03] LABS: ALANINE AMINOTRANSFERASE 36 IU/L (13-61); ASPARTATE AMINOTRANSFERASE 31 IU/L (15-37); BILIRUBIN TOTAL 0.7 mg/dL (0.1-1.0); CALCIUM 9.6 mg/dL (8.5-10.1); CARBON DIOXIDE 24 mEq/L (21-32); CHLORIDE 101 mEq/L (98-107); CREATININE 0.9 mg/dL (0.6-1.3); GLUCOSE 108 mg/dL (70-105); POTASSIUM 4.1 mEq/L (3.5-5.1); PROTEIN TOTAL 8.7 g/dL (6.0-8.3); SODIUM 138 mEq/L (136-145); UREA NITROGEN BLOOD 11 mg/dL (7-21)
[2023-04-06 17:30] LABS: ANISOCYTOSIS 1+; PLATELET ESTIMATE NORMAL
[2023-04-06] MEDS ORDERED: IBUP-2029 MT (17:41)
[2023-04-06] MEDS ORDERED: KETOROLAC 15MG/ML VIAL IV ONE (19:30)
[2023-04-06 21:26] VITALS: BP 165/90; PULSE 87; RESP 16; TEMP 98.4
== END 2023-04-06 21:29 | disposition home or self-care (01) ==
LOC: ER 15:05
DX: R10.11 Right upper quadrant pain (principal); R10.31 Right lower quadrant pain; E78.00 Pure hypercholesterolemia, unspecified; I10 Essential (primary) hypertension; Z98.890 Other specified postprocedural states
CPT/HCPCS: 80053; 83690; 85025; 85610; 36415; 74176; 96361; 96374; 99285; J1885; J7030; Z7610 ×3

== ENCOUNTER 2023-07-23 09:49 | Emergency (ER) | payer MEDICAID ==
[~2023-07-23] VITALS: Ht 175.3 cm; Wt 72.0 kg
[~2023-07-23 09:49] MED LIST changes: +AMLO10TA80 PO; -FOLI-43 MT; +HYDR-4134 PO; -LIP40 PO; -LOSA-412 PO; +LOSA50TA41 PO
[2023-07-23 09:50] VITALS: O2SAT 100
[2023-07-23 10:29] LABS: HEMOGLOBIN. 12.2 g/dL (14.0-18.0); MEAN CORPUSCULAR HEMOGLOBIN 34.8 pg (28.0-32.0); MEAN CORPUSCULAR VOLUME 102.4 fL (80.0-94.0); MEAN PLATELET VOLUME 7.8 fl (7.4-10.4); PLATELET 297 x1000/uL (130-400); RED BLOOD CELL COUNT 3.51 mill/uL (4.7-6.1); RED CELL DISTRIBUTION WIDTH 13.6 % (11.6-14.6); WHITE BLOOD COUNT 3.4 x1000/uL (4.5-11.0)
[2023-07-23 10:32] LABS: DIFFERENTIAL COMMENT 1
[2023-07-23 10:36] LABS: ALANINE AMINOTRANSFERASE 21 IU/L (10-49); ALBUMIN 4.5 g/dL (3.2-4.8); ASPARTATE AMINOTRANSFERASE 27 IU/L (<34); BILIRUBIN TOTAL 0.4 mg/dL (0.1-1.0); CALCIUM 9.8 mg/dL (8.7-10.4); CARBON DIOXIDE 27 mEq/L (21-32); CHLORIDE 104 mEq/L (98-107); CREATININE 0.8 mg/dL (0.6-1.3); ETHANOL BLOOD 42 mg/dL (<10); GLUCOSE 90 mg/dL (70-105); POTASSIUM 4.3 mEq/L (3.5-5.1); PROTEIN TOTAL 8.3 g/dL (6.0-8.3); SODIUM 140 mEq/L (136-145); UREA NITROGEN BLOOD 10 mg/dL (9-23)
[2023-07-23 11:08] LABS: CLARITY URINE CLEAR (CLEAR); COLOR URINE YELLOW (YELLOW); GLUCOSE URINE NEGATIVE (NEGATIVE); KETONES URINE NEGATIVE (NEGATIVE); LEUKOCYTE ESTERASE URINE NEGATIVE (NEGATIVE); NITRITE URINE NEGATIVE (NEGATIVE); OCCULT BLOOD URINE NEGATIVE (NEGATIVE); PH URINE 6.5 (4.5-8.0); PROTEIN URINE TRACE (NEGATIVE); SPECIFIC GRAVITY URINE 1.008 (1.005-1.030); UROBILINOGEN URINE 0.2 E.U./dL (0.2-1.0)
[2023-07-23 11:25] LABS: *AMPHETAMINES SCREEN URINE NEGATIVE (NEGATIVE); *BARBITURATES SCREEN URINE NEGATIVE (NEGATIVE); *BENZODIAZEPINES SCREEN URINE NEGATIVE (NEGATIVE); *COCAINE SCREEN URINE NEGATIVE (NEGATIVE); CANNABINOID URINE SCREEN PRESUMPTIVE POSITIVE (NEGATIVE); ECSTASY MDMA SCREEN URINE NEGATIVE (NEGATIVE); METHADONE URINE SCREEN Neg (NEGATIVE); OPIATES URINE SCREEN NEGATIVE (NEGATIVE); PHENCYCLIDINE URINE SCREEN NEGATIVE (NEGATIVE); SQUAMOUS EPITHELIAL CELL URINE RARE /lpf (RARE/1+)
[2023-07-23 11:26] LABS: RBC URINE 0-2 /hpf (0-2); WBC URINE 0-2 /hpf (0-2)
[2023-07-23 11:27] LABS: BACTERIA URINE TRACE
[2023-07-23 14:26] LABS: PLATELET ESTIMATE NORMAL
[2023-07-23 14:27] VITALS: BP 138/85; PULSE 77; RESP 16; TEMP 98.2
== END 2023-07-23 14:44 | disposition home or self-care (01) ==
LOC: ER 09:49
DX: T40.721A Poisoning by synthetic cannabinoids, accidental (unintentional), initial encounter (principal); R42 Dizziness and giddiness; F10.129 Alcohol abuse with intoxication, unspecified; E78.00 Pure hypercholesterolemia, unspecified; I10 Essential (primary) hypertension; Y90.2 Blood alcohol level of 40-59 mg/100 ml; Y92.89 Other specified places as the place of occurrence of the external cause
CPT/HCPCS: 36415; 80053; 80305; 80320; 81003; 85025; 93005; 99284; G0480

== ENCOUNTER 2023-09-08 22:44 | Inpatient (IN) | payer MEDICAID ==
[~2023-09-08] VITALS: Ht 170.2 cm; Wt 63.5 kg
[~2023-09-08 22:44] MED LIST changes: -HYDR-4134 PO; +HYDR25TA78 PO
[2023-09-09 00:39] LABS: BASOPHILS % 0.4 % (0.0-2.0); DIFFERENTIAL COMMENT 0; HEMATOCRIT. 38.5 % (42.0-52.0); HEMOGLOBIN. 12.7 g/dL (14.0-18.0); LYMPHOCYTES % 7.5 % (20.0-50.0); MEAN CORPUSCULAR HEMOGLOBIN 35.6 pg (28.0-32.0); MEAN CORPUSCULAR HGB CONC 33.1 g/dL (31.0-37.0); MEAN CORPUSCULAR VOLUME 107.7 fL (80.0-94.0); MEAN PLATELET VOLUME 7.8 fl (7.4-10.4); MONOCYTES % 8.8 % (2.0-8.0); NEUTROPHILS % 83.3 % (40.0-76.0); PLATELET 296 x1000/uL (130-400); RED BLOOD CELL COUNT 3.57 mill/uL (4.7-6.1); RED CELL DISTRIBUTION WIDTH 14.1 % (11.6-14.6); WHITE BLOOD COUNT 4.7 x1000/uL (4.5-11.0)
[2023-09-09 00:53] LABS: ALANINE AMINOTRANSFERASE 50 IU/L (10-49); ASPARTATE AMINOTRANSFERASE 65 IU/L (<34); BILIRUBIN TOTAL 0.6 mg/dL (0.1-1.0); CALCIUM 9.8 mg/dL (8.7-10.4); CARBON DIOXIDE 18 mEq/L (21-32); CHLORIDE 103 mEq/L (98-107); CREATININE 1.2 mg/dL (0.6-1.3); GLUCOSE 126 mg/dL (70-105); POTASSIUM 5.3 mEq/L (3.5-5.1); SODIUM 139 mEq/L (136-145); TROPONIN I HIGH SENSITIVITY 7 ng/L (3.0-53); UREA NITROGEN BLOOD 12 mg/dL (9-23)
[2023-09-09 00:55] LABS: ETHANOL BLOOD < 10 mg/dL (<10); PROTEIN TOTAL 9.3 g/dL (6.0-8.3)
[2023-09-09] MEDS: ACETAMINOPHEN 500MG TABLET PO ONE (03:30)
[2023-09-09] MEDS: NITROGLYCERIN 0.4MG TABLET SL SL ONE (03:45)
[2023-09-09] MEDS ORDERED: DOCUSATE SODIUM 100MG CAPSULE PO PRN (06:00)
[2023-09-09] MEDS ORDERED: ONDANSETRON HCL 4MG/2ML INJ IV PRN (06:00)
[2023-09-09] MEDS ORDERED: IPRATROPIUM/ALBUTEROL 0.5-3(2.5)MG/3ML NEB HHN PRN (06:00)
[2023-09-09] MEDS ORDERED: LORAZEPAM 2MG/ML INJ IV PRN ×2 (06:00)
[2023-09-09] MEDS ORDERED: GUAIFENESIN 200MG/10ML SUGAR FREE UDC PO PRN (06:00)
[2023-09-09] MEDS ORDERED: MAGNESIUM/ALUMINUM HYDROXIDE/SIMETHICONE 30ML UDC PO PRN (06:00)
[2023-09-09 06:19] LABS: HEMATOCRIT 38.2 % (42.0-52.0); HEMOGLOBIN 12.8 g/dL (14.0-18.0); MEAN CORPUSCULAR HEMOGLOBIN 35.7 pg (28.0-32.0); MEAN CORPUSCULAR HGB CONC 33.5 g/dL (31.0-37.0); MEAN CORPUSCULAR VOLUME 106.8 fL (80.0-94.0); PLATELET 281 x1000/uL (130-400); RED BLOOD CELL COUNT 3.58 mill/uL (4.7-6.1); RED CELL DISTRIBUTION WIDTH 13.8 % (11.6-14.6); WHITE BLOOD COUNT 4.5 x1000/uL (4.5-11.0)
[2023-09-09 06:46] LABS: ALANINE AMINOTRANSFERASE 49 IU/L (10-49); ALBUMIN 5.1 g/dL (3.2-4.8); ASPARTATE AMINOTRANSFERASE 65 IU/L (<34); BILIRUBIN TOTAL 0.6 mg/dL (0.1-1.0); CALCIUM 9.7 mg/dL (8.7-10.4); CARBON DIOXIDE 18 mEq/L (21-32); CHLORIDE 102 mEq/L (98-107); CHOLESTEROL 241 mg/dL (<200); CREATININE 1.1 mg/dL (0.6-1.3); GLUCOSE 101 mg/dL (70-105); HDL CHOLESTEROL 60 mg/dL (>55); IRON 112 ug/dL (65-175); LDL CHOLESTEROL 164 mg/dL (5-100); POTASSIUM 5.5 mEq/L (3.5-5.1); PROTEIN TOTAL 9.3 g/dL (6.0-8.3); SODIUM 141 mEq/L (136-145); TOTAL IRON BINDING CAPACITY 443 ug/dl (250-425); TRIGLYCERIDE 129 mg/dL (0-150); UREA NITROGEN BLOOD 11 mg/dL (9-23)
[2023-09-09 07:04] LABS: FERRITIN 127 ng/mL (22-322); FOLIC ACID (FOLATE) SERUM > 20.00 ng/mL (>5.38); VITAMIN B12 SERUM 489 pg/mL (211-911)
[2023-09-09] MEDS ORDERED: FOLIC ACID 1MG TABLET PO SCH (09:00)
[2023-09-09] MEDS: ASPIRIN 81MG EC TABLET PO SCH (09:00)
[2023-09-09] MEDS ORDERED: FERROUS SULFATE 325MG TABLET PO SCH (09:00)
[2023-09-09] MEDS ORDERED: THIAMINE HCL 100MG TABLET PO SCH (09:00)
[2023-09-09 09:41] LABS: PHOSPHORUS 3.1 mg/dL (2.5-4.9)
[2023-09-09] MEDS: ASPIRIN 81MG EC TABLET PO ONE (10:19)
[2023-09-09] MEDS: MULTIVITAMINS,THER W-MINERALS TABLET PO SCH (10:20)
[2023-09-09 10:27] LABS: AMMONIA < 17 uMol/L (<32)
[2023-09-09] MEDS: SODIUM POLYSTYRENE SULFONATE 15 G/60 ML BOT PO NR (10:59)
[2023-09-09] MEDS: MAGNESIUM 2 G PREMIX 50 ML IV NR (10:59)
[2023-09-09] MEDS: ONDANSETRON HCL 4MG/2ML INJ IV STA (10:59)
[2023-09-09] MEDS: CLONIDINE 0.1MG TABLET PO PRN (11:00)
[2023-09-09] MEDS: PANTOPRAZOLE SODIUM 40 MG/VIAL IV SCH (11:01)
[2023-09-09] MEDS: ENOXAPARIN 40MG/0.4ML SYR SUBCUT NR (11:03)
[2023-09-09] MEDS: [UNRECOGNIZED DRUG - REMARK] IV ONE (12:45)
[2023-09-09] MEDS ORDERED: NITROGLYCERIN 0.4MG TABLET SL SL PRN ×2 (13:15→15:15)
[2023-09-09] MEDS ORDERED: HYDRALAZINE 20MG/ML VIAL IV PRN (13:30)
[2023-09-09] MEDS: AMLODIPINE 5MG TABLET PO SCH (15:45)
[2023-09-09] MEDS ORDERED: LOSARTAN 50 MG TABLET PO SCH ×2 (17:00)
[2023-09-09 17:04] LABS: *AMPHETAMINES SCREEN URINE NEGATIVE (NEGATIVE); *BARBITURATES SCREEN URINE NEGATIVE (NEGATIVE); *BENZODIAZEPINES SCREEN URINE PRESUMPTIVE POSITIVE (NEGATIVE); *COCAINE SCREEN URINE NEGATIVE (NEGATIVE); CANNABINOID URINE SCREEN PRESUMPTIVE POSITIVE (NEGATIVE); ECSTASY MDMA SCREEN URINE NEGATIVE (NEGATIVE); METHADONE URINE SCREEN Neg (NEGATIVE); OPIATES URINE SCREEN NEGATIVE (NEGATIVE); PHENCYCLIDINE URINE SCREEN NEGATIVE (NEGATIVE)
[2023-09-09] MEDS: CHLORDIAZEPOXIDE 25MG CAPSULE PO ONE (17:26)
[2023-09-09 17:57] LABS: CALCIUM 9.1 mg/dL (8.7-10.4); CARBON DIOXIDE 27 mEq/L (21-32); CHLORIDE 103 mEq/L (98-107); CREATININE 1.2 mg/dL (0.6-1.3); GLUCOSE 105 mg/dL (70-105); POTASSIUM 3.9 mEq/L (3.5-5.1); SODIUM 140 mEq/L (136-145); UREA NITROGEN BLOOD 16 mg/dL (9-23)
[2023-09-09 18:00] LABS: CREATINE KINASE MB FRACTION 1.8 ng/mL (0.5-3.6)
[2023-09-09] MEDS ORDERED: FAMOTIDINE 20MG TABLET PO SCH (21:00)
[2023-09-09] MEDS: CARVEDILOL 6.25 MG TABLET PO SCH (21:33)
[2023-09-09 23:12] VITALS: BP 147/92; PULSE 72; RESP 19; TEMP 98.9
[2023-09-10] VITALS: BP 151/89; PULSE 72; RESP 18; TEMP 98.4
[2023-09-10] MEDS: HYDRALAZINE HCL 25MG TABLET PO SCH (02:44)
[2023-09-10 04:00] VITALS: BP 139/80; PULSE 72; RESP 19; TEMP 97.7
[2023-09-10 07:04] LABS: HEMATOCRIT 33.2 % (42.0-52.0); HEMOGLOBIN 11.3 g/dL (14.0-18.0); MEAN CORPUSCULAR HEMOGLOBIN 35.1 pg (28.0-32.0); MEAN CORPUSCULAR HGB CONC 34.1 g/dL (31.0-37.0); PLATELET 190 x1000/uL (130-400); RED BLOOD CELL COUNT 3.23 mill/uL (4.7-6.1); WHITE BLOOD COUNT 3.2 x1000/uL (4.5-11.0)
[2023-09-10 07:19] LABS: CALCIUM 8.8 mg/dL (8.7-10.4); CARBON DIOXIDE 30 mEq/L (21-32); CHLORIDE 103 mEq/L (98-107); GLUCOSE 108 mg/dL (70-105); PHOSPHORUS 1.9 mg/dL (2.5-4.9); POTASSIUM 3.6 mEq/L (3.5-5.1); SODIUM 140 mEq/L (136-145); UREA NITROGEN BLOOD 14 mg/dL (9-23)
[2023-09-10 08:16] VITALS: BP 125/68; PULSE 82; RESP 19; TEMP 98.8
[2023-09-10 08:34] LABS: CREATININE 0.9 mg/dL (0.6-1.3)
[2023-09-10] MEDS: MAGNESIUM OXIDE 400MG TABLET PO SCH (10:31)
[2023-09-10] MEDS: MAGNESIUM 2 G PREMIX 50 ML IV NR (11:53)
[2023-09-10 12:02] VITALS: BP 131/83; PULSE 75; RESP 19; TEMP 98.3
[2023-09-10] MEDS: HYDRALAZINE HCL 50MG TABLET PO SCH (14:09)
[2023-09-10] MEDS ORDERED: HYDR50TA39 PO (15:09)
[2023-09-10 15:50] VITALS: BP 140/89; PULSE 75; RESP 18; TEMP 98.4
[2023-09-10] MEDS: ACETAMINOPHEN 325MG TABLET PO PRN (16:23)
[2023-09-10 17:07] VITALS: BP 140/89; PULSE 75; TEMP 98.4; O2SAT 97
[2023-09-10] MEDS ORDERED: ATORVASTATIN CALCIUM 40MG TABLET PO SCH (21:00)
== END 2023-09-10 18:56 | disposition home or self-care (01) | DRG 243 ==
LOC: ER 22:44 → 5WST 09-09 05:14 → 7WST 09-09 22:05
PROVIDERS: ADMIT Internal Medicine; ATTEND Internal Medicine
DX: K21.9 Gastro-esophageal reflux disease without esophagitis (principal); I50.32 Chronic diastolic (congestive) heart failure; K70.10 Alcoholic hepatitis without ascites; I11.0 Hypertensive heart disease with heart failure; D50.9 Iron deficiency anemia, unspecified; E78.00 Pure hypercholesterolemia, unspecified; F12.90 Cannabis use, unspecified, uncomplicated; E83.42 Hypomagnesemia; I25.10 Atherosclerotic heart disease of native coronary artery without angina pectoris; E87.5 Hyperkalemia; F10.239 Alcohol dependence with withdrawal, unspecified; I49.3 Ventricular premature depolarization; I16.9 Hypertensive crisis, unspecified; Z59.02 Unsheltered homelessness; Z95.5 Presence of coronary angioplasty implant and graft; Z87.891 Personal history of nicotine dependence; Z83.3 Family history of diabetes mellitus; Z82.49 Family history of ischemic heart disease and other diseases of the circulatory system; Z79.82 Long term (current) use of aspirin
CPT/HCPCS: 36415; 71045; 80048; 80053; 80061; 80305; 80320; 82140; 82150; 82550; 82553; 82607; 82728; 82746; 83540; 83550; 83605; 83735; 83880; 84100; 84484; 85025; 85027; 93005; 93970; 99285; C9113; J1650; J2405; J3411; J3475; J3490; J7121; G0480

== ENCOUNTER 2023-09-20 10:34 | Emergency (ER) | payer MEDICAID ==
[~2023-09-20] VITALS: Ht 170.2 cm; Wt 66.0 kg
[~2023-09-20 10:34] MED LIST changes: -HYDR25TA78 PO; +HYDR50TA39 PO; -LOSA50TA41 PO; -MECL-264 PO
[2023-09-20 10:36] VITALS: O2SAT 96
[2023-09-20] MEDS: SODIUM CHLORIDE 0.9% 1,000 ML IV ONE (11:10)
[2023-09-20 11:16] LABS: BASOPHILS % 0.7 % (0.0-2.0); DIFFERENTIAL COMMENT 0; EOSINOPHILS % 0.6 % (0.0-5.0); HEMOGLOBIN. 14.1 g/dL (14.0-18.0); LYMPHOCYTES % 25.1 % (20.0-50.0); MEAN CORPUSCULAR HEMOGLOBIN 35.1 pg (28.0-32.0); MEAN CORPUSCULAR HGB CONC 33.6 g/dL (31.0-37.0); MEAN CORPUSCULAR VOLUME 104.6 fL (80.0-94.0); MEAN PLATELET VOLUME 7.4 fl (7.4-10.4); MONOCYTES % 9.2 % (2.0-8.0); NEUTROPHILS % 64.4 % (40.0-76.0); PLATELET 389 x1000/uL (130-400); RED BLOOD CELL COUNT 4.01 mill/uL (4.7-6.1); RED CELL DISTRIBUTION WIDTH 14.1 % (11.6-14.6); WHITE BLOOD COUNT 4.7 x1000/uL (4.5-11.0)
[2023-09-20 11:32] LABS: ALANINE AMINOTRANSFERASE 37 IU/L (10-49); ALBUMIN 4.8 g/dL (3.2-4.8); ASPARTATE AMINOTRANSFERASE 41 IU/L (<34); BILIRUBIN TOTAL 0.4 mg/dL (0.1-1.0); CALCIUM 9.5 mg/dL (8.7-10.4); CARBON DIOXIDE 19 mEq/L (21-32); CHLORIDE 105 mEq/L (98-107); CREATININE 0.8 mg/dL (0.6-1.3); ETHANOL BLOOD 117 mg/dL (<10); GLUCOSE 88 mg/dL (70-105); POTASSIUM 4.3 mEq/L (3.5-5.1); PROTEIN TOTAL 8.9 g/dL (6.0-8.3); SODIUM 141 mEq/L (136-145); TROPONIN I HIGH SENSITIVITY 9 ng/L (3.0-53); UREA NITROGEN BLOOD 6 mg/dL (9-23)
[2023-09-20] MEDS: FOLIC ACID 1 MG, THIAMINE HCL 100 MG, MVI, ADULT NO.1 10 ML in DEXTROSE 5% WATER 1,000 ML IV ONE (12:01)
[2023-09-20] MEDS: ONDANSETRON HCL 4MG/2ML INJ IV STA (12:09)
[2023-09-20] MEDS: CHLORDIAZEPOXIDE 25MG CAPSULE PO ONE (14:27)
[2023-09-20 14:31] LABS: CLARITY URINE CLEAR (CLEAR); COLOR URINE YELLOW (YELLOW); SPECIFIC GRAVITY URINE 1.013 (1.005-1.030)
[2023-09-20 14:32] LABS: GLUCOSE URINE NEGATIVE (NEGATIVE); KETONES URINE 1+ (NEGATIVE); LEUKOCYTE ESTERASE URINE NEGATIVE (NEGATIVE); NITRITE URINE NEGATIVE (NEGATIVE); OCCULT BLOOD URINE NEGATIVE (NEGATIVE); PROTEIN URINE TRACE (NEGATIVE); UROBILINOGEN URINE 0.2 E.U./dL (0.2-1.0)
[2023-09-20 14:40] LABS: *AMPHETAMINES SCREEN URINE NEGATIVE (NEGATIVE); *BARBITURATES SCREEN URINE NEGATIVE (NEGATIVE); *BENZODIAZEPINES SCREEN URINE PRESUMPTIVE POSITIVE (NEGATIVE); *COCAINE SCREEN URINE NEGATIVE (NEGATIVE); CANNABINOID URINE SCREEN PRESUMPTIVE POSITIVE (NEGATIVE); ECSTASY MDMA SCREEN URINE NEGATIVE (NEGATIVE); METHADONE URINE SCREEN Neg (NEGATIVE); MUCUS URINE TRACE /lpf (NONE/TRACE); OPIATES URINE SCREEN NEGATIVE (NEGATIVE); PHENCYCLIDINE URINE SCREEN NEGATIVE (NEGATIVE)
[2023-09-20 14:42] LABS: BACTERIA URINE TRACE
[2023-09-20 14:46] LABS: RBC URINE NONE SEEN /hpf (0-2); SQUAMOUS EPITHELIAL CELL URINE NONE SEEN /lpf (RARE/1+); WBC URINE 0-2 /hpf (0-2)
[2023-09-20] MEDS: ACETAMINOPHEN 325MG TABLET PO ONE (15:23)
[2023-09-20 18:39] VITALS: BP 167/89; PULSE 86; RESP 16; TEMP 98.2
== END 2023-09-20 19:11 | disposition home or self-care (01) ==
LOC: ER 11:57
DX: F10.129 Alcohol abuse with intoxication, unspecified (principal); F12.10 Cannabis abuse, uncomplicated; I10 Essential (primary) hypertension; E78.00 Pure hypercholesterolemia, unspecified; Z98.890 Other specified postprocedural states; Y90.5 Blood alcohol level of 100-119 mg/100 ml
CPT/HCPCS: 80053; 80305; 81003; 80320; 85025; 84484; 36415; 71045; 93005; 96361; 96365; 96375; 99285; J3490 ×2; J2405; J3411; J7070; J7030; Z7610 ×3; G0480

== ENCOUNTER 2023-10-23 13:06 | Emergency (ER) | payer MEDICAID ==
[~2023-10-23] VITALS: Ht 167.6 cm; Wt 80.0 kg
[2023-10-23 13:15] VITALS: BP 124/77; PULSE 87; RESP 16; TEMP 98.3; O2SAT 100
== END 2023-10-23 16:43 | disposition left against medical advice (07) ==
LOC: ER 13:06
DX: R07.81 Pleurodynia (principal); E78.00 Pure hypercholesterolemia, unspecified; I10 Essential (primary) hypertension; Z98.890 Other specified postprocedural states
CPT/HCPCS: 82962; 99283

== ENCOUNTER 2024-02-08 14:13 | Emergency (ER) | payer MEDICAID ==
[~2024-02-08] VITALS: Ht 170.2 cm; Wt 68.0 kg
[2024-02-08 14:16] VITALS: BP 141/84; PULSE 110; RESP 16; TEMP 98; O2SAT 99
[2024-02-08] MEDS ORDERED: FAMOTIDINE 20MG TABLET PO ONE (14:30)
[2024-02-08] MEDS ORDERED: CHLORDIAZEPOXIDE 25MG CAPSULE PO ONE (14:30)
[2024-02-08] MEDS ORDERED: MAGNESIUM/ALUMINUM HYDROXIDE/SIMETHICONE 30ML UDC PO ONE (14:30)
[2024-02-08] MEDS ORDERED: ONDANSETRON 4MG ODT PO ONE (14:30)
[2024-02-08 15:03] LABS: CARBON DIOXIDE 20 mEq/L (21-32); CHLORIDE 99 mEq/L (98-107); POTASSIUM 4.2 mEq/L (3.5-5.1); SODIUM 132 mEq/L (136-145)
[2024-02-08 15:04] LABS: CALCIUM 9.4 mg/dL (8.7-10.4)
[2024-02-08 15:08] LABS: CREATININE 0.9 mg/dL (0.6-1.3)
[2024-02-08 15:09] LABS: ETHANOL BLOOD 27 mg/dL (<10); GLUCOSE 91 mg/dL (70-105); HEMATOCRIT. 37.1 % (42.0-52.0); HEMOGLOBIN. 12.8 g/dL (14.0-18.0); MEAN CORPUSCULAR HEMOGLOBIN 34.8 pg (28.0-32.0); MEAN CORPUSCULAR HGB CONC 34.4 g/dL (31.0-37.0); MEAN CORPUSCULAR VOLUME 101.2 fL (80.0-94.0); MEAN PLATELET VOLUME 7.5 fl (7.4-10.4); PLATELET 297 x1000/uL (130-400); RED BLOOD CELL COUNT 3.67 mill/uL (4.7-6.1); RED CELL DISTRIBUTION WIDTH 15.3 % (11.6-14.6); WHITE BLOOD COUNT 7.1 x1000/uL (4.5-11.0)
[2024-02-08 15:10] LABS: ALANINE AMINOTRANSFERASE 50 IU/L (10-49); ALBUMIN 4.6 g/dL (3.2-4.8); ASPARTATE AMINOTRANSFERASE 71 IU/L (<34); PROTEIN TOTAL 7.9 g/dL (6.0-8.3)
[2024-02-08 15:11] LABS: BILIRUBIN DIRECT 0.2 mg/dL (<=3.0); BILIRUBIN TOTAL 0.4 mg/dL (0.1-1.0); DIFFERENTIAL COMMENT 1; PHOSPHORUS 3.2 mg/dL (2.5-4.9)
[2024-02-08 15:33] LABS: UREA NITROGEN BLOOD < 5 mg/dL (9-23)
[2024-02-08] MEDS ORDERED: SODIUM CHLORIDE 0.9% 1,000 ML IV ONE (15:45)
[2024-02-08] MEDS ORDERED: MAGNESIUM 2 G PREMIX 50 ML IV ONE (15:45)
[2024-02-08 17:31] LABS: ANISOCYTOSIS 1+; PLATELET ESTIMATE NORMAL
== END 2024-02-08 18:16 | disposition home or self-care (01) ==
LOC: ER 14:13
DX: F10.239 Alcohol dependence with withdrawal, unspecified (principal); E83.42 Hypomagnesemia; I10 Essential (primary) hypertension; Z79.899 Other long term (current) drug therapy; Y90.1 Blood alcohol level of 20-39 mg/100 ml
CPT/HCPCS: 80076; 80048; 80320; 83735; 84100; 85025; 36415; 99283; J7030; G0480

== ENCOUNTER 2024-02-19 15:13 | Emergency (ER) | payer MEDICAID ==
[~2024-02-19] VITALS: Ht 165.1 cm; Wt 64.0 kg
[2024-02-19 15:20] VITALS: O2SAT 100
[2024-02-19] MEDS: CHLORDIAZEPOXIDE 25MG CAPSULE PO ONE (18:11)
[2024-02-19 18:28] LABS: BASOPHILS % 0.8 % (0.0-2.0); DIFFERENTIAL COMMENT 0; EOSINOPHILS % 0.1 % (0.0-5.0); HEMATOCRIT. 38.4 % (42.0-52.0); HEMOGLOBIN. 12.9 g/dL (14.0-18.0); LYMPHOCYTES % 9.3 % (20.0-50.0); MEAN CORPUSCULAR HEMOGLOBIN 34.6 pg (28.0-32.0); MEAN CORPUSCULAR HGB CONC 33.7 g/dL (31.0-37.0); MEAN CORPUSCULAR VOLUME 102.8 fL (80.0-94.0); MEAN PLATELET VOLUME 7.7 fl (7.4-10.4); MONOCYTES % 9.4 % (2.0-8.0); NEUTROPHILS % 80.4 % (40.0-76.0); PLATELET 215 x1000/uL (130-400); RED BLOOD CELL COUNT 3.74 mill/uL (4.7-6.1); WHITE BLOOD COUNT 5.3 x1000/uL (4.5-11.0)
[2024-02-19 18:35] LABS: CHLORIDE 102 mEq/L (98-107); POTASSIUM 4.4 mEq/L (3.5-5.1); SODIUM 138 mEq/L (136-145)
[2024-02-19 18:36] LABS: CALCIUM 9.8 mg/dL (8.7-10.4); CARBON DIOXIDE 24 mEq/L (21-32)
[2024-02-19] MEDS: CHLORDIAZEPOXIDE 25MG CAPSULE PO NR (18:40)
[2024-02-19 18:41] LABS: CREATININE 0.9 mg/dL (0.6-1.3); GLUCOSE 83 mg/dL (70-105); UREA NITROGEN BLOOD 13 mg/dL (9-23)
[2024-02-19 18:43] LABS: ALANINE AMINOTRANSFERASE 57 IU/L (10-49); ALBUMIN 4.5 g/dL (3.2-4.8); ASPARTATE AMINOTRANSFERASE 84 IU/L (<34); BILIRUBIN DIRECT 0.2 mg/dL (<=3.0); PHOSPHORUS 3.6 mg/dL (2.5-4.9)
[2024-02-19 18:44] LABS: BILIRUBIN TOTAL 0.7 mg/dL (0.1-1.0)
[2024-02-19 18:46] LABS: ETHANOL BLOOD < 10 mg/dL (<10)
[2024-02-19] MEDS ORDERED: MAGNESIUM GLUCONATE 500MG TABLET PO SCH (19:00)
[2024-02-19 21:34] VITALS: BP 157/89; PULSE 78; RESP 20; TEMP 36.72516; O2SAT 100
== END 2024-02-19 21:43 | disposition home or self-care (01) ==
LOC: ER 15:13
DX: F10.239 Alcohol dependence with withdrawal, unspecified (principal); E78.00 Pure hypercholesterolemia, unspecified; I10 Essential (primary) hypertension; F12.90 Cannabis use, unspecified, uncomplicated; Z79.899 Other long term (current) drug therapy; Y90.0 Blood alcohol level of less than 20 mg/100 ml
CPT/HCPCS: 36415; 80048; 80076; 80320; 83735; 84100; 85025; 99284; G0480

== ENCOUNTER 2024-03-05 21:22 | Inpatient (IN) | payer MEDICAID ==
[~2024-03-05] VITALS: Ht 170.2 cm; Wt 66.7 kg
[2024-03-05] MEDS: ASPIRIN 325MG EC TABLET PO ONE (22:55)
[2024-03-05] MEDS: NITROGLYCERIN 0.4MG TABLET SL SL ONE (22:55)
[2024-03-05] MEDS: CHLORDIAZEPOXIDE 25MG CAPSULE PO ONE (23:54)
[2024-03-06 00:10] LABS: BASOPHILS % 1.4 % (0.0-2.0); DIFFERENTIAL COMMENT 0; EOSINOPHILS % 0.7 % (0.0-5.0); HEMATOCRIT. 38.9 % (42.0-52.0); HEMOGLOBIN. 13.1 g/dL (14.0-18.0); LYMPHOCYTES % 39.9 % (20.0-50.0); MEAN CORPUSCULAR HEMOGLOBIN 35.1 pg (28.0-32.0); MEAN CORPUSCULAR HGB CONC 33.8 g/dL (31.0-37.0); MEAN CORPUSCULAR VOLUME 103.7 fL (80.0-94.0); MEAN PLATELET VOLUME 6.7 fl (7.4-10.4); MONOCYTES % 7.3 % (2.0-8.0); NEUTROPHILS % 50.7 % (40.0-76.0); PLATELET 306 x1000/uL (130-400); RED BLOOD CELL COUNT 3.75 mill/uL (4.7-6.1); RED CELL DISTRIBUTION WIDTH 13.9 % (11.6-14.6); WHITE BLOOD COUNT 2.9 x1000/uL (4.5-11.0)
[2024-03-06 00:12] LABS: CHLORIDE 106 mEq/L (98-107); POTASSIUM 4.2 mEq/L (3.5-5.1); PROTHROMBIN TIME 11.4 sec (9.6-11.0); SODIUM 145 mEq/L (136-145)
[2024-03-06 00:13] LABS: CARBON DIOXIDE 28 mEq/L (21-32)
[2024-03-06 00:14] LABS: CALCIUM 9.8 mg/dL (8.7-10.4)
[2024-03-06 00:18] LABS: CREATININE 0.8 mg/dL (0.6-1.3); GLUCOSE 86 mg/dL (70-105)
[2024-03-06 00:19] LABS: TROPONIN I HIGH SENSITIVITY 13 ng/L (3.0-53); UREA NITROGEN BLOOD 12 mg/dL (9-23)
[2024-03-06 00:20] LABS: ALANINE AMINOTRANSFERASE 57 IU/L (10-49); ALBUMIN 4.7 g/dL (3.2-4.8); ASPARTATE AMINOTRANSFERASE 85 IU/L (<34)
[2024-03-06 00:21] LABS: BILIRUBIN TOTAL 0.3 mg/dL (0.1-1.0); PROTEIN TOTAL 8.3 g/dL (6.0-8.3)
[2024-03-06 00:32] LABS: BILIRUBIN DIRECT < 0.1 mg/dL (<=3.0)
[2024-03-06 00:34] LABS: CLARITY URINE CLEAR (CLEAR); COLOR URINE YELLOW (YELLOW); GLUCOSE URINE NEGATIVE (NEGATIVE); KETONES URINE NEGATIVE (NEGATIVE); LEUKOCYTE ESTERASE URINE TRACE (NEGATIVE); NITRITE URINE NEGATIVE (NEGATIVE); OCCULT BLOOD URINE NEGATIVE (NEGATIVE); PH URINE 5.5 (4.5-8.0); PROTEIN URINE 1+ (NEGATIVE); UROBILINOGEN URINE 0.2 E.U./dL (0.2-1.0)
[2024-03-06] MEDS ORDERED: GUAIFENESIN 200MG/10ML SUGAR FREE UDC PO PRN (00:45)
[2024-03-06] MEDS ORDERED: CLONIDINE 0.1MG TABLET PO PRN (00:45)
[2024-03-06] MEDS ORDERED: DOCUSATE SODIUM 100MG CAPSULE PO PRN (00:45)
[2024-03-06] MEDS ORDERED: HYDRALAZINE 20MG/ML VIAL IV PRN (00:45)
[2024-03-06] MEDS ORDERED: ACETAMINOPHEN 325MG TABLET PO PRN (00:45)
[2024-03-06] MEDS ORDERED: ONDANSETRON HCL 4MG/2ML INJ IV PRN (00:45)
[2024-03-06] MEDS ORDERED: MAGNESIUM/ALUMINUM HYDROXIDE/SIMETHICONE 30ML UDC PO PRN (00:45)
[2024-03-06] MEDS ORDERED: IPRATROPIUM/ALBUTEROL 0.5-3(2.5)MG/3ML NEB HHN PRN (00:45)
[2024-03-06] MEDS: AMLODIPINE 5MG TABLET PO SCH (01:20)
[2024-03-06 01:26] LABS: PHOSPHORUS 3.4 mg/dL (2.5-4.9)
[2024-03-06 02:05] LABS: BACTERIA URINE TRACE; RBC URINE 0-2 /hpf (0-2); SQUAMOUS EPITHELIAL CELL URINE RARE /lpf (RARE/1+)
[2024-03-06] MEDS: MAGNESIUM 2 G PREMIX 50 ML IV SCH (02:43)
[2024-03-06] MEDS ORDERED: LORAZEPAM 2MG/ML INJ IV PRN (03:45)
[2024-03-06] MEDS ORDERED: ASPIRIN 81MG TABLET PO SCH (09:00)
[2024-03-06] MEDS: HYDRALAZINE HCL 50MG TABLET PO SCH (10:49)
[2024-03-06] MEDS: ASPIRIN 81MG TABLET PO SCH (10:50)
[2024-03-06] MEDS: PANTOPRAZOLE 40MG DR TABLET PO SCH (10:50)
[2024-03-06] MEDS: CHLORDIAZEPOXIDE 25MG CAPSULE PO SCH (10:50)
[2024-03-06] MEDS: CARVEDILOL 6.25 MG TABLET PO SCH (10:50)
[2024-03-06 10:51] LABS: CREATINE KINASE MB FRACTION 1.9 ng/mL (0.5-3.6)
[2024-03-06] MEDS: FOLIC ACID 1MG TABLET PO SCH (10:51)
[2024-03-06] MEDS: ENOXAPARIN 40MG/0.4ML SYR SUBCUT SCH (10:51)
[2024-03-06] MEDS: THIAMINE HCL 100MG TABLET PO SCH (10:51)
[2024-03-06 11:31] LABS: VITAMIN B12 SERUM 613 pg/mL (211-911)
[2024-03-06 11:32] LABS: FOLIC ACID (FOLATE) SERUM 8.17 ng/mL (>5.38)
[2024-03-06] MEDS: AMLODIPINE 10MG TABLET PO SCH (12:00)
[2024-03-06] MEDS: MAGNESIUM OXIDE 400MG TABLET PO SCH (12:45)
[2024-03-06] MEDS: FUROSEMIDE 40MG/4ML VIAL IVP SCH (16:55)
[2024-03-06] MEDS: MAGNESIUM 2 G PREMIX 50 ML IV NR ×2 (16:55→23:58)
[2024-03-06 17:59] LABS: CREATINE KINASE MB FRACTION 1.4 ng/mL (0.5-3.6)
[2024-03-06 20:00] VITALS: BP 142/99; PULSE 84; RESP 16; TEMP 37.05852; O2SAT 99
[2024-03-06] MEDS: ATORVASTATIN CALCIUM 40MG TABLET PO SCH (21:02)
[2024-03-06 21:58] LABS: CREATINE KINASE MB FRACTION 1.6 ng/mL (0.5-3.6)
[2024-03-06] MEDS ORDERED: LIDOCAINE HCL 1% 20ML VIAL INFIL SCH (23:15)
[2024-03-06] MEDS ORDERED: MAGNESIUM 2 G PREMIX 50 ML IV ONE (23:30)
[2024-03-06] MEDS: SODIUM CHLORIDE 0.9% 500 ML IV ONE (23:57)
[2024-03-06] MEDS: KETOROLAC 15MG/ML VIAL IV SCH (23:59)
[2024-03-07] VITALS: PULSE 112; PULSE 61; RESP 18; RESP 20; TEMP 98.3
[2024-03-07] MEDS: ACETAMINOPHEN 325MG TABLET PO PRN (00:49)
[2024-03-07 02:10] VITALS: BP 120/81; PULSE 74; PULSE 79; RESP 17; RESP 18; TEMP 36.6696; TEMP 36.696; O2SAT 99
[2024-03-07 04:00] VITALS: BP 130/86; PULSE 75; RESP 18; TEMP 36.55848; O2SAT 98
[2024-03-07 08:00] VITALS: BP 113/75; PULSE 87; RESP 16; TEMP 36.6696; TEMP 36.66960; O2SAT 96
[2024-03-07] MEDS ORDERED: MAGNESIUM 2 G PREMIX 50 ML IV NR (09:00)
[2024-03-07] MEDS: POTASSIUM CHLORIDE 20MEQ TABLET SR PO SCH (09:41)
[2024-03-07 10:30] LABS: BASOPHILS % 0.6 % (0.0-2.0); DIFFERENTIAL COMMENT 0; EOSINOPHILS % 0.1 % (0.0-5.0); HEMATOCRIT. 37.1 % (42.0-52.0); HEMOGLOBIN. 12.4 g/dL (14.0-18.0); LYMPHOCYTES % 7.8 % (20.0-50.0); MEAN CORPUSCULAR HGB CONC 33.5 g/dL (31.0-37.0); MEAN CORPUSCULAR VOLUME 104.5 fL (80.0-94.0); MEAN PLATELET VOLUME 7.2 fl (7.4-10.4); NEUTROPHILS % 82.5 % (40.0-76.0); PLATELET 301 x1000/uL (130-400); RED BLOOD CELL COUNT 3.55 mill/uL (4.7-6.1); RED CELL DISTRIBUTION WIDTH 14.2 % (11.6-14.6); WHITE BLOOD COUNT 5.9 x1000/uL (4.5-11.0)
[2024-03-07 10:56] VITALS: BP 113/75; PULSE 87; TEMP 98; O2SAT 96
[2024-03-07 11:52] LABS: TROPONIN I HIGH SENSITIVITY 5 ng/L (3.0-53)
[2024-03-07 11:56] LABS: T4 FREE 1.07 ng/dL (0.89-1.76); THYROID STIMULATING HORMONE 2.59 uIU/mL (0.55-4.78)
[2024-03-07 11:59] LABS: CHLORIDE 100 mEq/L (98-107); POTASSIUM 3.9 mEq/L (3.5-5.1)
[2024-03-07 12:00] LABS: CALCIUM 9.6 mg/dL (8.7-10.4); CARBON DIOXIDE 24 mEq/L (21-32)
[2024-03-07 12:05] LABS: GLUCOSE 172 mg/dL (70-105); TRIGLYCERIDE 121 mg/dL (0-150)
[2024-03-07 12:06] LABS: LDL CHOLESTEROL 145 mg/dL (5-100); UREA NITROGEN BLOOD 9 mg/dL (9-23)
[2024-03-07 12:07] LABS: CHOLESTEROL 242 mg/dL (<200); HDL CHOLESTEROL 80 mg/dL (>55)
[2024-03-07 12:19] LABS: SODIUM 136 mEq/L (136-145)
[2024-03-08] MEDS ORDERED: FAMOTIDINE 20MG TABLET PO SCH (09:00)
== END 2024-03-07 15:28 | disposition home or self-care (01) | DRG 203 ==
LOC: ER 21:22 → 5WST 03-06 03:00 → 7WST 03-07 02:03
PROVIDERS: ADMIT Internal Medicine; ATTEND Internal Medicine
PROC: 0CQ1XZZ Repair Lower Lip, External Approach (ICD-10-PCS; principal; 2024-03-07)
DX: M94.0 Chondrocostal junction syndrome [Tietze] (principal); I11.0 Hypertensive heart disease with heart failure; I50.32 Chronic diastolic (congestive) heart failure; D53.9 Nutritional anemia, unspecified; E78.5 Hyperlipidemia, unspecified; E83.42 Hypomagnesemia; S01.511A Laceration without foreign body of lip, initial encounter; F10.129 Alcohol abuse with intoxication, unspecified; F12.90 Cannabis use, unspecified, uncomplicated; F10.139 Alcohol abuse with withdrawal, unspecified; Y90.9 Presence of alcohol in blood, level not specified; I25.119 Atherosclerotic heart disease of native coronary artery with unspecified angina pectoris; Z79.899 Other long term (current) drug therapy; Z82.49 Family history of ischemic heart disease and other diseases of the circulatory system; Z83.3 Family history of diabetes mellitus; S01.81XA Laceration without foreign body of other part of head, initial encounter; Z91.81 History of falling; Z95.5 Presence of coronary angioplasty implant and graft; Z59.00 Homelessness unspecified; I25.2 Old myocardial infarction; Z87.891 Personal history of nicotine dependence; Z79.82 Long term (current) use of aspirin
CPT/HCPCS: 36415; 71045; 73030; 80048; 80061; 80076; 80320; 81003; 82550; 82553; 82607; 82746; 82962; 83735; 83880; 84100; 84439; 84443; 84484; 85025; 93005; 99291; J1650; J1885; J1940; J3475; J3490; G0480

== ENCOUNTER 2024-03-22 11:20 | Emergency (ER) | payer MEDICAID ==
[~2024-03-22] VITALS: Ht 172.7 cm; Wt 63.5 kg
[2024-03-22 11:26] VITALS: BP 135/93; O2SAT 99
[2024-03-22 13:00] VITALS: PULSE 79; RESP 18; TEMP 36.50292; O2SAT 99
[2024-03-22] MEDS: BACITRACIN ZINC OINT UDPKT TOP ONE (13:37)
== END 2024-03-22 13:42 | disposition home or self-care (01) ==
LOC: ER 11:20
DX: S01.511D Laceration without foreign body of lip, subsequent encounter (principal); E78.00 Pure hypercholesterolemia, unspecified; I10 Essential (primary) hypertension; F12.90 Cannabis use, unspecified, uncomplicated; F10.20 Alcohol dependence, uncomplicated; Z79.899 Other long term (current) drug therapy; X58.XXXD Exposure to other specified factors, subsequent encounter
CPT/HCPCS: 99282

== ENCOUNTER 2024-06-11 09:22 | Emergency (ER) | payer MEDICAID ==
[~2024-06-11] VITALS: Ht 167.6 cm; Wt 76.0 kg
[~2024-06-11 09:22] MED LIST changes: -NITR0.4T49 SL
[2024-06-11 09:28] VITALS: O2SAT 100
[2024-06-11 12:48] LABS: CHLORIDE 104 mEq/L (98-107); POTASSIUM 4.1 mEq/L (3.5-5.1); SODIUM 143 mEq/L (136-145)
[2024-06-11 12:49] LABS: CALCIUM 9.6 mg/dL (8.7-10.4); CARBON DIOXIDE 22 mEq/L (21-32)
[2024-06-11 12:54] LABS: BASOPHILS % 0.5 % (0.0-2.0); DIFFERENTIAL COMMENT 0; GLUCOSE 75 mg/dL (70-105); HEMATOCRIT. 41.7 % (42.0-52.0); HEMOGLOBIN. 13.6 g/dL (14.0-18.0); MEAN CORPUSCULAR HGB CONC 32.5 g/dL (31.0-37.0); MEAN CORPUSCULAR VOLUME 101.4 fL (80.0-94.0); MEAN PLATELET VOLUME 8.5 fl (7.4-10.4); MONOCYTES % 5.8 % (2.0-8.0); NEUTROPHILS % 84.7 % (40.0-76.0); PLATELET 236 x1000/uL (130-400); RED BLOOD CELL COUNT 4.11 mill/uL (4.7-6.1); UREA NITROGEN BLOOD 7 mg/dL (9-23); WHITE BLOOD COUNT 11.1 x1000/uL (4.5-11.0)
[2024-06-11 12:55] LABS: ETHANOL BLOOD 131 mg/dL (<10); INR 1.1; PROTHROMBIN TIME 11.9 sec (9.6-11.0); TROPONIN I HIGH SENSITIVITY 6 ng/L (3.0-53)
[2024-06-11 12:56] LABS: ALANINE AMINOTRANSFERASE 36 IU/L (10-49); ALBUMIN 4.2 g/dL (3.2-4.8); ASPARTATE AMINOTRANSFERASE 57 IU/L (<34); BILIRUBIN DIRECT 0.2 mg/dL (<=3.0); BILIRUBIN TOTAL 0.6 mg/dL (0.1-1.0)
[2024-06-11 12:57] LABS: PROTEIN TOTAL 7.9 g/dL (6.0-8.3)
[2024-06-11] MEDS: ACETAMINOPHEN 325MG TABLET PO ONE (13:29)
[2024-06-11] MEDS: ONDANSETRON 4MG ODT PO STA (13:29)
[2024-06-11] MEDS: MAGNESIUM/ALUMINUM HYDROXIDE/SIMETHICONE 30ML UDC PO STA (13:29)
[2024-06-11] MEDS: FAMOTIDINE 20MG TABLET PO ONE (13:29)
[2024-06-11 14:57] LABS: ETHANOL BLOOD 94 mg/dL (<10); TROPONIN I HIGH SENSITIVITY 6 ng/L (3.0-53)
[2024-06-11] MEDS ORDERED: CEFP200T13 MT (15:22)
[2024-06-11 15:38] VITALS: BP 145/77; PULSE 81; RESP 18; TEMP 36.66960; O2SAT 100
== END 2024-06-11 15:40 | disposition home or self-care (01) ==
LOC: ER 09:22
DX: N39.0 Urinary tract infection, site not specified (principal); R10.13 Epigastric pain; E78.00 Pure hypercholesterolemia, unspecified; F10.20 Alcohol dependence, uncomplicated; I10 Essential (primary) hypertension; F12.90 Cannabis use, unspecified, uncomplicated; I25.10 Atherosclerotic heart disease of native coronary artery without angina pectoris; Z79.82 Long term (current) use of aspirin; Z79.899 Other long term (current) drug therapy; Z83.3 Family history of diabetes mellitus; Y90.4 Blood alcohol level of 80-99 mg/100 ml
CPT/HCPCS: 80076; 80048; 80320; 83690; 85025; 85610; 84484; 36415; 71045; 74176; 93005; 99285; Q0162; G0480

== ENCOUNTER 2024-09-20 16:51 | Emergency (ER) | payer MEDICAID ==
[~2024-09-20] VITALS: Ht 172.7 cm; Wt 77.0 kg
[~2024-09-20 16:51] MED LIST changes: +COR6 MT; -COR6 PO
[2024-09-20 16:55] VITALS: O2SAT 98
[2024-09-20] MEDS: HYDROCODONE/ACETAMINOPHEN 5/325MG TABLET PO STA (18:05)
[2024-09-20 18:24] LABS: BASOPHILS % 1.9 % (0.0-2.0); EOSINOPHILS % 2.9 % (0.0-5.0); HEMATOCRIT. 35.4 % (42.0-52.0); HEMOGLOBIN. 11.5 g/dL (14.0-18.0); LYMPHOCYTES % 39.2 % (20.0-50.0); MEAN CORPUSCULAR HEMOGLOBIN 32.3 pg (28.0-32.0); MEAN CORPUSCULAR HGB CONC 32.5 g/dL (31.0-37.0); MEAN CORPUSCULAR VOLUME 99.5 fL (80.0-94.0); MEAN PLATELET VOLUME 7.1 fl (7.4-10.4); MONOCYTES % 13.7 % (2.0-8.0); NEUTROPHILS % 42.3 % (40.0-76.0); PLATELET 271 x1000/uL (130-400); RED BLOOD CELL COUNT 3.56 mill/uL (4.7-6.1); RED CELL DISTRIBUTION WIDTH 16.4 % (11.6-14.6); WHITE BLOOD COUNT 3.1 x1000/uL (4.5-11.0)
[2024-09-20 18:27] LABS: CHLORIDE 105 mEq/L (98-107); POTASSIUM 3.9 mEq/L (3.5-5.1); SODIUM 143 mEq/L (136-145)
[2024-09-20 18:28] LABS: CALCIUM 9.6 mg/dL (8.7-10.4); CARBON DIOXIDE 28 mEq/L (21-32)
[2024-09-20 18:30] LABS: PROTHROMBIN TIME 10.9 sec (9.6-11.0)
[2024-09-20 18:33] LABS: CREATININE 0.8 mg/dL (0.6-1.3); GLUCOSE 76 mg/dL (70-105); UREA NITROGEN BLOOD 8 mg/dL (9-23)
[2024-09-20 18:34] LABS: ETHANOL BLOOD 300 mg/dL (<10)
[2024-09-20 18:35] LABS: ALANINE AMINOTRANSFERASE 20 IU/L (10-49); ASPARTATE AMINOTRANSFERASE 30 IU/L (<34); BILIRUBIN DIRECT < 0.1 mg/dL (<=3.0); BILIRUBIN TOTAL 0.3 mg/dL (0.1-1.0); PROTEIN TOTAL 7.4 g/dL (6.0-8.3); TROPONIN I HIGH SENSITIVITY 7 ng/L (3.0-53)
[2024-09-20 19:13] VITALS: TEMP 37.1
[2024-09-20 21:27] LABS: TROPONIN I HIGH SENSITIVITY 7 ng/L (3.0-53)
[2024-09-20] MEDS: ONDANSETRON HCL 4MG/2ML INJ IV NR (21:27)
[2024-09-20] MEDS ORDERED: PROT40 MT (21:48)
[2024-09-20 22:52] VITALS: BP 133/89; PULSE 75; RESP 12; O2SAT 96
[2024-10-02] MEDS ORDERED: TOPUD MT (12:00)
== END 2024-09-20 23:19 | disposition home or self-care (01) ==
LOC: ER 16:51
DX: R07.89 Other chest pain (principal); E78.00 Pure hypercholesterolemia, unspecified; I10 Essential (primary) hypertension; J44.9 Chronic obstructive pulmonary disease, unspecified; I25.10 Atherosclerotic heart disease of native coronary artery without angina pectoris; F10.90 Alcohol use, unspecified, uncomplicated; Z79.82 Long term (current) use of aspirin; Z79.899 Other long term (current) drug therapy; Z95.1 Presence of aortocoronary bypass graft; Y90.9 Presence of alcohol in blood, level not specified
CPT/HCPCS: 80076; 80048; 80320; 83880; 83690; 85025; 85610; 84484; 36415; 71045; 74176; 93005; 96374; 99285; J2405; G0480

== ENCOUNTER 2024-11-12 11:12 | Emergency (ER) | payer MEDICAID ==
[~2024-11-12] VITALS: Ht 172.7 cm; Wt 77.0 kg
[~2024-11-12 11:12] MED LIST changes: +GABA-1180 MT; +HYDR-4009 MT; +IBUP-2029 MT; -PANT40TA51 PO; +TOPUD MT
[2024-11-12 11:17] VITALS: O2SAT 98
[2024-11-12 11:51] VITALS: TEMP 36.8
[2024-11-12 12:32] LABS: BASOPHILS % 0.7 % (0.0-2.0); EOSINOPHILS % 0.4 % (0.0-5.0); HEMATOCRIT. 40.5 % (42.0-52.0); HEMOGLOBIN. 13.6 g/dL (14.0-18.0); LYMPHOCYTES % 38.7 % (20.0-50.0); MEAN CORPUSCULAR HEMOGLOBIN 33.6 pg (28.0-32.0); MEAN CORPUSCULAR HGB CONC 33.7 g/dL (31.0-37.0); MEAN CORPUSCULAR VOLUME 99.8 fL (80.0-94.0); MEAN PLATELET VOLUME 7.6 fl (7.4-10.4); NEUTROPHILS % 52.2 % (40.0-76.0); PLATELET 301 x1000/uL (130-400); RED BLOOD CELL COUNT 4.06 mill/uL (4.7-6.1); RED CELL DISTRIBUTION WIDTH 15.3 % (11.6-14.6); WHITE BLOOD COUNT 2.8 x1000/uL (4.5-11.0)
[2024-11-12 12:45] LABS: CHLORIDE 106 mEq/L (98-107); SODIUM 143 mEq/L (136-145)
[2024-11-12 12:47] LABS: CALCIUM 9.7 mg/dL (8.7-10.4); CARBON DIOXIDE 25 mEq/L (21-32)
[2024-11-12 12:52] LABS: CREATININE 0.8 mg/dL (0.6-1.3); GLUCOSE 77 mg/dL (70-105); UREA NITROGEN BLOOD 8 mg/dL (9-23)
[2024-11-12 12:53] LABS: TROPONIN I HIGH SENSITIVITY 7 ng/L (3.0-53)
[2024-11-12 13:39] VITALS: BP 149/90; PULSE 72; RESP 11; O2SAT 99
== END 2024-11-12 13:51 | disposition home or self-care (01) ==
LOC: ER 11:12
DX: R06.02 Shortness of breath (principal); R11.0 Nausea; J44.9 Chronic obstructive pulmonary disease, unspecified; I10 Essential (primary) hypertension; E78.00 Pure hypercholesterolemia, unspecified; Z79.82 Long term (current) use of aspirin; Z79.899 Other long term (current) drug therapy; Z98.890 Other specified postprocedural states; Z86.59 Personal history of other mental and behavioral disorders
CPT/HCPCS: 80048; 85025; 84484; 36415; 71045; 99284; Z7610; A4606

== ENCOUNTER 2024-11-16 21:07 | Emergency (ER) | payer MEDICAID ==
[~2024-11-16] VITALS: Ht 170.2 cm; Wt 70.0 kg
[2024-11-16 21:09] VITALS: O2SAT 99
[2024-11-17 01:50] VITALS: TEMP 36.8
[2024-11-17 02:29] VITALS: BP 181/100; PULSE 80; RESP 20; O2SAT 97
== END 2024-11-17 02:36 | disposition home or self-care (01) ==
LOC: ER 21:07
DX: F10.129 Alcohol abuse with intoxication, unspecified (principal); E78.5 Hyperlipidemia, unspecified; I10 Essential (primary) hypertension; Z79.82 Long term (current) use of aspirin; Z79.899 Other long term (current) drug therapy; Z83.3 Family history of diabetes mellitus; Z95.5 Presence of coronary angioplasty implant and graft; Y90.9 Presence of alcohol in blood, level not specified
CPT/HCPCS: 99283; Z7610; A4606

== ENCOUNTER 2025-02-13 12:30 | Emergency (ER) | payer MEDICAID ==
[~2025-02-13] VITALS: Ht 177.8 cm; Wt 75.0 kg
[~2025-02-13 12:30] MED LIST changes: -AMLO10TA80 PO; +CLOP-31 MT; +EMPA10TA PO; -HYDR-4009 MT; -HYDR50TA39 PO; -IBUP-2029 MT; +ISOS30TA91 PO; +LOSA25TA26 PO; -TOPUD MT
[2025-02-13 12:41] VITALS: O2SAT 96
[2025-02-13 13:50] LABS: BASOPHILS % 1.0 % (0.0-2.0); EOSINOPHILS % 0.8 % (0.0-5.0); HEMATOCRIT. 37.5 % (42.0-52.0); HEMOGLOBIN. 12.1 g/dL (14.0-18.0); LYMPHOCYTES % 21.6 % (20.0-50.0); MEAN PLATELET VOLUME 7.2 fl (7.4-10.4); MONOCYTES % 13.7 % (2.0-8.0); NEUTROPHILS % 62.9 % (40.0-76.0); PLATELET 356 x1000/uL (130-400); RED BLOOD CELL COUNT 4.01 mill/uL (4.7-6.1); RED CELL DISTRIBUTION WIDTH 15.6 % (11.6-14.6)
[2025-02-13 13:58] LABS: CREATININE 1.0 mg/dL (0.6-1.3); UREA NITROGEN BLOOD 11 mg/dL (9-23)
[2025-02-13 14:00] LABS: ASPARTATE AMINOTRANSFERASE 34 IU/L (<34); BILIRUBIN DIRECT < 0.1 mg/dL (<=3.0)
[2025-02-13 14:01] LABS: BILIRUBIN TOTAL 0.4 mg/dL (0.1-1.0); PROTEIN TOTAL 8.1 g/dL (6.0-8.3)
[2025-02-13] MEDS: ONDANSETRON HCL 4MG/2ML INJ IV ONE (14:05)
[2025-02-13] MEDS: SODIUM CHLORIDE 0.9% 1,000 ML IV ONE (14:06)
[2025-02-13] MEDS: LORAZEPAM 2MG/ML UD SYRINGE IV SCH (14:06)
[2025-02-13] MEDS ORDERED: CHLO25CA11 MT (15:14)
[2025-02-13] MEDS ORDERED: ONDA-241 MT (15:14)
[2025-02-13 15:19] VITALS: BP 124/81; PULSE 97; RESP 16; TEMP 36.8; O2SAT 98
== END 2025-02-13 15:55 | disposition home or self-care (01) ==
LOC: ER 12:51
DX: F10.239 Alcohol dependence with withdrawal, unspecified (principal); I10 Essential (primary) hypertension; E78.00 Pure hypercholesterolemia, unspecified; I25.2 Old myocardial infarction; J44.9 Chronic obstructive pulmonary disease, unspecified; Z79.899 Other long term (current) drug therapy; Z79.84 Long term (current) use of oral hypoglycemic drugs; Z79.82 Long term (current) use of aspirin; Y90.9 Presence of alcohol in blood, level not specified
CPT/HCPCS: 99284; 96374; 96361; 96375; 80076; 80048; 83735; 85025; 36415; J2060; J2405; J7030